=== PATIENT | female | born 1950 | race Caucasian/White ===

== ENCOUNTER 2016-10-29 08:09 | Day surgery (SDC) | payer OTHER ==
[2016-10-29] MEDS ORDERED: fentaNYL 100 MCG/2 ML INJ IVP ONE (08:11)
[2016-10-29] MEDS ORDERED: ASPIRIN EC 325 MG TAB PO ONE (08:11)
[2016-10-29] MEDS ORDERED: NS 1,000 ML IV ONE (08:11)
[2016-10-29] MEDS ORDERED: DIAZEPAM 5 MG TAB PO ONE (08:11)
[2016-10-29] MEDS ORDERED: diphenhydrAMINE 25 MG CAP PO ONE (08:11)
[2016-10-29] MEDS ORDERED: MIDAZOLAM 2 MG/2 ML VIAL IVP ONE (08:11)
[2016-10-29] MEDS ORDERED: FAMOTIDINE 20 MG TAB PO ONE (08:11)
[2016-10-29] MEDS ORDERED: BENZOCAINE UNIT DOSE SPRAY HURRICAINE MM ONE (08:11)
--- NOTE | 2016-10-29 08:26 | CPEKG ---
Heart Rate: 71 RR Interval: 845 P-R Interval: 192 QRSD Interval: 96 QT Interval: 440 QTC Interval: 479 P Lewis: -72 QRS Lewis: 80 T Wave Lewis: -75 EKG Severity - OTHERWISE NORMAL ECG - EKG Impression: SINUS OR ECTOPIC ATRIAL RHYTHM EKG Impression: NONSPECIFIC ST_T WAVE ABNORMAILITES Electronically Signed By: Rohit Galvan 29-Oct-2016 16:20:57
[2016-10-29 08:44] LABS: % IMMATURE GRANULYOCYTES 0.8 % (0.0-1.1); ABSOLUTE IMMATURE GRANULOCYTES 0.06 10^3/uL (0.00-0.10); ADD DIFF? NO; ADD MORPH? NO; ADD SCAN? NO; ATYPICAL LYMPHOCYTE FLAG 20 (0-99); FRAGMENT RBC FLAG 0 (0-99); HEMATOCRIT 42.8 % (38.0-47.0); HEMOGLOBIN 14.4 g/dL (12.6-16.3); LEFT SHIFT FLG 0 (0-99); LIPEMIA HEMOLYSIS FLAG 80 (0-99); MEAN CELL HEMOGLOBIN 30.9 pg (27.9-34.1); MEAN CELL HEMOGLOBIN CONCENTR. 33.6 g/dL (32.4-36.7); MEAN CELL VOLUME 91.8 fL (81.5-99.8); MEAN PLATELET VOLUME 13.3 fL (8.7-11.7); PLATELET CLUMPS FLAG 0 (0-99); PLATELET COUNT 247 10^3/uL (150-400); RED BLOOD CELL COUNT 4.66 10^6/uL (4.18-5.33); RED CELL DISTRIBUTION WIDTH 13.3 % (11.5-15.2)
[2016-10-29 08:54] LABS: INR 2.81 (0.83-1.16); PROTIME(PATIENT) 29.9 SEC (12.0-15.0)
[2016-10-29 09:05] LABS: ANION GAP 11 mEq/L (8-16); CALCIUM 9.9 mg/dL (8.5-10.4); CARBON DIOXIDE 21 mEq/l (22-31); CHLORIDE 105 mEq/L (97-110); CHOLESTEROL 192 mg/dL (140-220); CHOLESTEROL/HDL RATIO 3.76 RATIO (1.00-4.44); CREATININE 0.8 mg/dL (0.6-1.0); GLOMERULAR FILTRATION RATE > 60; GLUCOSE 98 mg/dL (70-100); HIGH DENSITY LIPOPROTEIN 51 mg/dL (40-85); LDL/HDL RATIO 1.67 RATIO (1.00-3.22); LOW DENSITY LIPOPROTEIN 85 mg/dL (80-100); MAGNESIUM 1.7 mg/dL (1.6-2.3); NON-HIGH DENSITY LIPOPROTEIN 141 mg/dL (90-129); POTASSIUM 4.1 mEq/L (3.5-5.2); SODIUM 137 mEq/L (134-144); TRIGLYCERIDE 284 mg/dL (35-135); VERY LOW DENSITY LIPOPROTEINS 56 mg/dL (8-25)
[2016-10-29] MEDS ORDERED: ADENOSINE 90 MG/30 ML VIAL IV ONE (09:37)
[2016-10-29] MEDS ORDERED: LIDOCAINE 1% 300 MG/30 ML SDV ONE (09:43)
[2016-10-29] MEDS ORDERED: fentaNYL 100 MCG/2 ML INJ ONE ×2 (09:43)
[2016-10-29] MEDS ORDERED: IOPAMIDOL (ISOVUE-370) 150 ML BTL IV ONE (09:43)
[2016-10-29] MEDS ORDERED: MIDAZOLAM 2 MG/2 ML VIAL ONE ×3 (09:43→10:24)
[2016-10-29] MEDS ORDERED: HEPARIN 10,000 UNIT/10 ML MDV ONE (09:49)
[2016-10-29] MEDS ORDERED: VERAPAMIL 5 MG/2 ML VIAL ONE (09:49)
--- NOTE | 2016-10-29 18:07 | CPIP ---
[f rep st] INVASIVE CARDIAC PROCEDURE DATE OF PROCEDURE: 10/29/2016 INDICATIONS: The patient is 66 years old. She has a history of complex mitral valve disease with m ultiple previous mitral valve surgeries, most recently placement of a mechanical [facility]. Neftali mitral tadeo ve, which was done in the 80s. By echocardiography, there has been a sequential increase in her pul monary artery pressures. She has [place] [employer] functional class 2 dyspnea on exertion. PROCEDURE: Right heart catheterization. Of note, this procedure was performed immediately followin g a complete transesophageal echocardiogram. TECHNIQUE: Following informed consent, the left brachial vein was cannulated. A 6-Upper Sorbian SafeSheat h was then placed. Using a balloon-tipped catheter, a full right heart catheterization was performe d. Following the procedure, the catheter and the sheath were removed from the body. FINDINGS: The pulmonary capillary wedge pressure was 21 with A waves of 19 and V waves of 30. The pulmonary capillary wedge saturation was 93.5%, confirming excellent wedge placement. The pulmonary artery pressure was 33 with a systolic of 50 and a diastolic of 22. Right ventricular pressure was 56/7/14 mmHg. Right atrial pressure was 14 mmHg. Aortic saturation was assumed to be 98% based on pulse oximetry. The pulmonary capillary wedge saturation was 93.5%, pulmonary artery saturation 78 .6%, right atrial saturation 79.3%, and superior vena cava saturation 77.9%. Calculated cardiac out put by Kervin was 4.48 L/minute with an index of 2.3 L/min/sq m. IMPRESSION: 1. Moderate pulmonary hypertension, likely on the basis of increased left-sided pressures. The tra nspulmonary gradient is 12 mmHg, indicating that there is not a substantial primary pulmonary arteri al component or primary pulmonary process. 2. History of complex mitral valve disease as detailed above. /[id number]/MODL
--- NOTE | 2016-11-01 11:47 | ECHO ---
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 Left ventricular systolic function is normal. Right Ventricle The right ventricle is normal in size and function. Atria The interatrial septum is intact with no evidence for an atrial septal defect. HAILEY appears to have been oversewn. The left atrium is mildly dilated. The right atrium is mildly dilated. 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 There is mild mitral regurgitation. There is a mechanical mitral valve. Tricuspid Valve Normal tricuspid valve. There is moderate tricuspid regurgitation. Aortic Valve The aortic valve is trileaflet. Mild Aortic Valve Calcification. There is no aortic insufficiency. Pulmonic Valve The pulmonic valve is normal in structure and function. Vessels The aortic root is normal size. The pulmonary is not well visualized. Pericardium There is no pericardial effusion. Conclusion A 2D transesophageal echocardiogram with color flow Doppler was performed. Normal LV size and function. Left ventricular systolic function is normal. There are no regional wall motion abnormalities. The left atrium is mildly dilated. HAILEY appears to have been oversewn. There is a mechanical mitral valve. There is mild mitral regurgitation. 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 Mild aortic sclerosis. Grossly normal tricuspid valve. There is moderate tricuspid regurgitation. Final Reading Physician: Lucian Rodriguez signed on 11/01/2016 11:46 AM Ordering Physician: Rohit Galvan Performed By: Rohit Galvan MD
== END 2016-10-29 13:45 | disposition home or self-care (01) ==
LOC: FCATH 08:09
PROVIDERS: ATTEND Internal Medicine Cardiovascular Disease
PROC: B246ZZ4 Ultrasonography of Right and Left Heart, Transesophageal (ICD-10-PCS; principal; 2016-10-29)
PROC: 4A023N6 Measurement of Cardiac Sampling and Pressure, Right Heart, Percutaneous Approach (ICD-10-PCS; principal; 2016-10-29)
DX: I27.2 Other secondary pulmonary hypertension (principal); I10 Essential (primary) hypertension; E78.5 Hyperlipidemia, unspecified; I48.91 Unspecified atrial fibrillation; Z79.01 Long term (current) use of anticoagulants; Z86.79 Personal history of other diseases of the circulatory system; Z95.4 Presence of other heart-valve replacement; Z86.73 Personal history of transient ischemic attack (TIA), and cerebral infarction without residual deficits
CPT/HCPCS: J0153; J1644; J2250; J3010; Q9967

== ENCOUNTER → 2017-02-12 | Day surgery (SDC) | payer OTHER ==
[~2017-02-12] MED LIST: ATROPINE SULFATE 1 MG/10 ML SYR IVP ONE; MIDAZOLAM 2 MG/2 ML VIAL IVP ONE; NS 500 ML IV ONE; PROPOFOL 200 MG/20 ML VIAL ONE; fentaNYL 100 MCG/2 ML INJ IVP ONE
--- NOTE | 2017-02-12 13:54 | CPEKG ---
Heart Rate: 150 RR Interval: 400 QRSD Interval: 94 QT Interval: 328 QTC Interval: 519 QRS [place]: 78 T Wave [place]: 269 EKG Severity - ABNORMAL ECG - EKG Impression: ATRIAL FIBRILLATION EKG Impression: REPOLARIZATION ABNORMALITY, PROB RATE RELATED EKG Impression: PROLONGED QT INTERVAL EKG Impression: ATRIAL FIBRILLATION IS NEW IN COMPARISON TO PRIOR Electronically Signed By: Yordan Camp 16-Feb-2017 09:06:43
[2017-02-12 14:19] LABS: INR 2.68 (0.83-1.16); PROTIME(PATIENT) 28.8 SEC (12.0-15.0)
[2017-02-12 14:20] LABS: APTT 40.1 SEC (23.0-38.0)
--- NOTE | 2017-02-12 15:03 | PDANEPAE ---
ANE History of Present Illness SVT ANE Past Medical History - Pulmonary History Hx Sleep Apnea: Yes ANE Review of Systems Review of Systems: - Exercise capacity METS (RN): 3 METS ANE Patient History - Allergies Allergies/Adverse Reactions: No Known Allergies Allergy (Verified 02/12/17 14:53) - Home Medications Home Medications: Aspirin [Aspirin 81mg (*)] 81 mg PO HS 10/29/16 [Last Taken 02/11/17] Estrogens, Conjugated [Premarin] 1.25 mg PO HS 10/29/16 [Last Taken 02/11/17] Gemfibrozil [Lopid 600 MG (*)] 600 mg PO BIDAC 10/29/16 [Last Taken 02/11/17] Herbals/Supplements -Info Only 1 ea PO DAILY 10/29/16 [Last Taken 02/11/17] Multivitamins [Multivitamin (*)] 1 each PO DAILY 10/29/16 [Last Taken 02/11/17] Naproxen 500 mg PO DAILY PRN 10/29/16 [Last Taken 02/11/17] Omeprazole [Prilosec 20 mg] 20 mg PO DAILY 10/29/16 [Last Taken 02/11/17] Penicillin V Potassium [Pen Vk 500mg (*)] 500 mg PO AD PRN 10/29/16 [Last Taken Unknown] Risedronate Sodium [Actonel] 150 mg PO Q30D 10/29/16 [Last Taken 02/11/17] Sotalol HCl [Sotalol] 120 mg PO BID 10/29/16 [Last Taken 02/12/17] Warfarin Sodium [Coumadin 5MG (*)] 5 mg PO HS 10/29/16 [Last Taken 02/11/17] Furosemide 40 mg 02/12/17 [Last Taken 02/11/17] Potassium 20 meq 02/12/17 [Last Taken 02/11/17] - Smoking Hx Smoking Status: Never smoked ANE Labs/Vital Signs - Labs Result Diagrams: 02/12/17 13:58 - Vital Signs Height: 162.56 cm Weight: 81.647 kg ANE Physical Exam - Airway Neck exam: FROM Mallampati Score: Class 1 Mouth exam: normal dental/mouth exam - Pulmonary Pulmonary: no respiratory distress - Cardiovascular Cardiovascular: regular rate and rhythym - ASA Status ASA Status: III ANE Anesthesia Plan Total IV Anesthesia: Yes
--- NOTE | 2017-02-12 15:12 | PDHPUP ---
History & Physical Update H&P update statement: This history and physical update is based on an assessment of the patient which was completed after admission or registration (within 24 hours), but prior to the surgery/procedure. H&P update: H&P reviewed & patient examined, no change in patient's condition since H&P completed
[2017-02-12 15:27] LABS: ANION GAP 16 mEq/L (8-16); CALCIUM 10.3 mg/dL (8.5-10.4); CARBON DIOXIDE 21 mEq/l (22-31); CHLORIDE 101 mEq/L (97-110); CREATININE 1.1 mg/dL (0.6-1.0); GLOMERULAR FILTRATION RATE 50; GLUCOSE 127 mg/dL (70-100); MAGNESIUM 1.6 mg/dL (1.6-2.3); POTASSIUM 3.9 mEq/L (3.5-5.2); SODIUM 138 mEq/L (134-144)
--- NOTE | 2017-02-12 15:42 | PDTEE1 ---
FANY Cardioversion Procedure Procedure: electrical cardioversion Indications: atrial fibrillation Consent: signed and in chart Anticoagulation: warfarin Procedural Details: Pads were placed in anterior-posterior position. FANY probe was advanced and standard images obtained. There is no evidence of left atrial or left atrial appendage thrombus. Synchronized cardioversion attempt #1: 200J Results: normal sinus rhythm (FANY not performed.) Conclusions: successful cardioversion
--- NOTE | 2017-02-12 15:46 | CPEKG ---
Heart Rate: 65 RR Interval: 923 P-R Interval: 149 QRSD Interval: 102 QT Interval: 452 QTC Interval: 470 P [place]: 0 QRS [place]: 70 T Wave Cache: -77 EKG Severity - ABNORMAL ECG - EKG Impression: SINUS RHYTHM EKG Impression: REPOL ABNRM SUGGESTS ISCHEMIA, ANT-LAT LEADS EKG Impression: SINUS RHYTHM HAS REPLACED ATRIAL FIBRILLATION ON PRIOR ECG Electronically Signed By: Yordan Camp 16-Feb-2017 09:07:04
[2017-02-12 16:02] VITALS: BP 106/69; RESP 19; O2SAT 97
== END | disposition home or self-care (01) ==
LOC: FCATH 13:33
PROVIDERS: ATTEND Internal Medicine Cardiovascular Disease
PROC: 5A2204Z Restoration of Cardiac Rhythm, Single (ICD-10-PCS; principal; 2017-02-12)
PROC: B245ZZ4 Ultrasonography of Left Heart, Transesophageal (ICD-10-PCS; principal; 2017-02-12)
DX: I48.0 Paroxysmal atrial fibrillation (principal); I10 Essential (primary) hypertension; Z86.73 Personal history of transient ischemic attack (TIA), and cerebral infarction without residual deficits; Z95.2 Presence of prosthetic heart valve; E78.5 Hyperlipidemia, unspecified; E66.9 Obesity, unspecified; Z68.30 Body mass index [BMI] 30.0-30.9, adult
CPT/HCPCS: J2704

== ENCOUNTER 2017-05-13 06:32 | Day surgery (SDC) | payer OTHER ==
[2017-05-13] MEDS ORDERED: ATROPINE SULFATE 1 MG/10 ML SYR IVP ONE (06:34)
[2017-05-13] MEDS ORDERED: NS 500 ML IV ONE (06:34)
--- NOTE | 2017-05-13 06:49 | CPEKG ---
Heart Rate: 68 RR Interval: 882 P-R Interval: 200 QRSD Interval: 96 QT Interval: 480 QTC Interval: 511 P [place]: -48 QRS [place]: 67 T Wave [place]: -75 EKG Severity - ABNORMAL ECG - EKG Impression: SINUS OR ECTOPIC ATRIAL RHYTHM EKG Impression: NONSPECIFIC REPOL ABNORMALITY, DIFFUSE LEADS EKG Impression: PROLONGED QT INTERVAL EKG Impression: SIMILAR ST/T WAVE CHANGES WERE NOTED ON PRIOR ECG Electronically Signed By: Yordan Camp 13-May-2017 14:38:58
== END 2017-05-13 07:30 | disposition home or self-care (01) ==
LOC: FCATH 06:32
PROVIDERS: ATTEND Internal Medicine Cardiovascular Disease
DX: I48.92 Unspecified atrial flutter (principal); Z53.09 Procedure and treatment not carried out because of other contraindication

== ENCOUNTER 2017-05-22 06:56 | Inpatient (IN) | payer OTHER ==
[2017-05-22] MEDS ORDERED: NS 1,000 ML IV ONE (07:01)
--- NOTE | 2017-05-22 07:20 | CPEKG ---
Heart Rate: 72 RR Interval: 833 P-R Interval: 158 QRSD Interval: 98 QT Interval: 444 QTC Interval: 486 P Iron: 0 QRS Iron: 63 T Wave Iron: -58 EKG Severity - ABNORMAL ECG - EKG Impression: SINUS RHYTHM EKG Impression: ABNORMAL T, CONSIDER ISCHEMIA, DIFFUSE LEADS EKG Impression: BORDERLINE PROLONGED QT INTERVAL Electronically Signed By: Yordan Camp 25-May-2017 10:33:34
[2017-05-22 07:32] LABS: PLATELET COUNT 275 10^3/uL (150-400)
[2017-05-22 07:41] LABS: INR 2.75 (0.83-1.16)
[2017-05-22] MEDS ORDERED: HEPARIN 10,000 UNIT/10 ML MDV (1,000 UNIT/ML) ONE (07:50)
[2017-05-22] MEDS ORDERED: BUPIVACAINE 0.5% 30 ML SDV ONE (07:50)
[2017-05-22] MEDS ORDERED: LIDOCAINE 1% 300 MG/30 ML SDV ONE (07:50)
[2017-05-22] MEDS ORDERED: ISOPROTERENOL HCL/D5W 0.2 MG/50 ML BAG IV ONE (07:51)
[2017-05-22] MEDS ORDERED: MIDAZOLAM 2 MG/2 ML VIAL IVP ONE (08:23)
--- NOTE | 2017-05-22 08:24 | PDANEPAE ---
ANE History of Present Illness here for AF ablation ANE Past Medical History - Cardiovascular History Hx Arrhythmias: Yes Hx Chest Pain: No Hx Coronary Artery / Peripheral Vascular Disease: No Hx CHF / Valvular Disease: Yes Hx Palpitations: No - Pulmonary History Hx COPD: No Hx Asthma/Reactive Airway Disease: No Hx Recent Upper Respiratory Infection: No Hx Oxygen in Use at Home: No Hx Sleep Apnea: Yes - Neurologic History Hx Cerebrovascular Accident: Yes Hx Seizures: No Hx Dementia: No - Endocrine History Hx Diabetes: No Hypothyroid: No Hyperthyroid: No Obesity: no - Renal History Hx Renal Disorders: No - Liver History Hx Hepatic Disorders: No - Neurological & Psychiatric Hx Hx Neurological and Psychiatric Disorders: No ANE Review of Systems Review of systems is: negative Review of Systems: - Exercise capacity Exercise capacity: <4 METS ANE Patient History - Allergies Allergies/Adverse Reactions: No Known Allergies Allergy (Verified 02/12/17 14:53) - Home Medications Home medications: home medication list seen and reviewed Home Medications: Aspirin [Aspirin 81mg (*)] 81 mg PO HS 10/29/16 [Last Taken 02/11/17] Estrogens, Conjugated [Premarin] 1.25 mg PO HS 10/29/16 [Last Taken 02/11/17] Gemfibrozil [Lopid 600 MG (*)] 600 mg PO BIDAC 10/29/16 [Last Taken 02/11/17] Multivitamins [Multivitamin (*)] 1 tab PO DAILY 10/29/16 [Last Taken 02/11/17] Naproxen 500 mg PO DAILY PRN 10/29/16 [Last Taken 02/11/17] Omeprazole [Prilosec 20 mg] 20 mg PO DAILY 10/29/16 [Last Taken 02/11/17] Penicillin V Potassium [Pen Vk 500mg (*)] 500 mg PO AD PRN 10/29/16 [Last Taken Unknown] Risedronate Sodium [Actonel] 150 mg PO Q30D 10/29/16 [Last Taken 05/05/17] Sotalol HCl [Sotalol] 120 mg PO BID 10/29/16 [Last Taken 02/12/17] Warfarin Sodium [Coumadin 5MG (*)] 5 mg PO HS 10/29/16 [Last Taken 02/11/17] Furosemide [Lasix 40 MG (*)] 60 mg PO DAILY 02/12/17 [Last Taken 02/11/17] Potassium Cl [Klor-Con 20 meq (*)] 20 meq PO DAILY 02/12/17 [Last Taken 02/11/17 ] Calcium Citrate/Glut AC HCl [Calcium Citrate Tablet] 1 tab PO BID 05/17/17 [ Last Taken Unknown] Gerton-3 Fatty Acids [Fish Oil 1000 mg (*)] 1,000 mg PO BID 05/17/17 [Last Taken Unknown] - NPO status NPO Status: no food or drink >8 hours - Smoking Hx Smoking Status: Never smoked ANE Labs/Vital Signs - Labs Result Diagrams: 05/22/17 07:20 05/22/17 07:20 - Vital Signs Vital Signs: reviewed preoperatively; see RN documention for details ANE Physical Exam - Airway Neck exam: FROM Mallampati Score: Class 1 - Pulmonary Pulmonary: no respiratory distress - Cardiovascular Cardiovascular: regular rate and rhythym - ASA Status ASA Status: II, III ANE Anesthesia Plan Anesthesia Plan: general endotracheal anesthesia
[2017-05-22] MEDS ORDERED: PROPOFOL/EMULSION 500 MG/50 ML BOTTLE IV ONE ×2 (08:59→09:18)
[2017-05-22] MEDS ORDERED: fentaNYL 100 MCG/2 ML INJ ONE (09:09)
[2017-05-22] MEDS ORDERED: OXYCODONE/APAP 5/325 TAB PO PRN (10:59)
[2017-05-22] MEDS ORDERED: ONDANSETRON 4 MG/2 ML VIAL IVP PRN (10:59)
[2017-05-22] MEDS ORDERED: ACETAMINOPHEN 325 MG TAB PO PRN (10:59)
[2017-05-22] MEDS ORDERED: SUGAMMADEX SODIUM 200 MG/2 ML VIAL IVP ONE (11:01)
[2017-05-22] MEDS ORDERED: NON-FORMULARY NEW DRUG (Naproxen [Naproxen] 500 MG) PO PRN (11:01)
[2017-05-22] MEDS ORDERED: PENICILLIN VK 500 MG TAB PO PRN (11:01)
[2017-05-22] MEDS ORDERED: RISEDRONATE SODIUM 150 MG PO SCH (11:15)
--- NOTE | 2017-05-22 11:22 | CPEKG ---
Heart Rate: 72 RR Interval: 833 P-R Interval: 244 QRSD Interval: 104 QT Interval: 456 QTC Interval: 500 P [place]: 26 QRS [place]: 71 T Wave [place]: -75 EKG Severity - ABNORMAL ECG - EKG Impression: SINUS RHYTHM EKG Impression: FIRST DEGREE AV BLOCK EKG Impression: BORDERLINE PROLONGED QT INTERVAL EKG Impression: NON SPECIFIC ST/T CHANGES NOTED Electronically Signed By: Yordan Camp 25-May-2017 10:33:57
--- NOTE | 2017-05-22 11:32 | POSTANESTH ---
Post Anesthetic Evaluation Cardiovascular Status: Normal, Stable Respiratory Status: Normal, Stable Level of Consciousness/Mental Status: Can Participate in Eval Pain Control: Adequate, Prn Tx Ordered Nausea/Vomiting Control: Adequate, Prn Tx Ordered Complications Possibly Related to Anesthesia: None Noted
[2017-05-22] MEDS ORDERED: NAPROXEN SODIUM 220 MG TAB PO PRN (11:33)
[2017-05-22] MEDS: GEMFIBROZIL 600 MG TAB PO SCH (18:41)
[2017-05-22] MEDS ORDERED: METOPROLOL TARTRATE 5 MG/5 ML INJ IVP ONE (20:15)
[2017-05-22] MEDS: WARFARIN SODIUM 5 MG TAB PO SCH (20:31)
[2017-05-22] MEDS: OMEGA-3 FATTY ACIDS 1,000 MG CAP PO SCH (20:31)
[2017-05-22] MEDS: SOTALOL HCL 80 MG TAB PO SCH (20:31)
[2017-05-22] MEDS: ASPIRIN 81 MG CHEWABLE TAB PO SCH (20:31)
[2017-05-22] MEDS ORDERED: [UNRECOGNIZED DRUG - OTHER] PO SCH (21:00)
[2017-05-22] MEDS ORDERED: ESTROGENS CONJUGATED 1.25 MG PO SCH (21:00)
[2017-05-22] MEDS ORDERED: CALCIUM CITRATE PO SCH (21:00)
[2017-05-22] MEDS ORDERED: NON-FORMULARY NEW DRUG (Sotalol Hcl [Sotalol] 120 MG) PO SCH (21:00)
[2017-05-22] MEDS ORDERED: DILTIAZEM HCL/D5W 125 ML IV SCH (23:00)
[2017-05-23 02:31] LABS: PLATELET COUNT 259 10^3/uL (150-400)
[2017-05-23 02:39] LABS: INR 2.87 (0.83-1.16)
[2017-05-23 02:48] LABS: CREATINE KINASE 35 IU/L (0-156)
[2017-05-23] MEDS: SOTALOL HCL 80 MG TAB PO SCH ×2 (08:02→21:06)
[2017-05-23] MEDS: PANTOPRAZOLE SODIUM 40 MG TAB PO SCH (08:06)
[2017-05-23] MEDS: OMEGA-3 FATTY ACIDS 1,000 MG CAP PO SCH ×2 (08:06→21:07)
[2017-05-23] MEDS: CALCIUM CARBONATE 500 MG TAB PO SCH ×2 (08:06→21:07)
[2017-05-23] MEDS: MULTIVITAMINS 1 EACH TAB PO SCH (08:06)
[2017-05-23] MEDS: GEMFIBROZIL 600 MG TAB PO SCH ×2 (08:06→16:36)
[2017-05-23] MEDS ORDERED: ATROPINE SULFATE 1 MG/10 ML SYR IVP ONE (08:22)
[2017-05-23] MEDS ORDERED: NS 500 ML IV ONE (08:22)
[2017-05-23] MEDS ORDERED: MIDAZOLAM 2 MG/2 ML VIAL IVP ONE (08:22)
[2017-05-23] MEDS ORDERED: fentaNYL 100 MCG/2 ML INJ IVP ONE (08:22)
[2017-05-23] MEDS ORDERED: ATROPINE SULFATE 1 MG/10 ML SYR ONE (08:24)
--- NOTE | 2017-05-23 08:29 | ECHO ---
[email or web address] [address] [address] Main: [phone] Fax: Transthoracic Echocardiogram Name: BOB RICHARDSON MR#: [id number] Study Date: 05/23/2017 Study Time: 04:57 AM Date of : 1950 Age: 67 year(s) Height: 165.1 cm (65 in.) Weight: 78.02 kg (172 lb.) BSA: 1.86 m2 Gender: Female Examination: Echo Indication: stat r/o pericardial effusion Image Quality: Technically Difficult Contrast: Requested by: Valdo Ott BP: 91 mmHg/57 mmHg Heart Rate: Rhythm: Atrial fibrillation Indication: stat r/o pericardial effusion 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 Low normal left ventricular systolic function. EF is 50 %. There is paradoxic septal motion suggestive of bundle branch block, paced cardiac rhythm, or prior cardiac surgery. A mechanical mitral valve prosthesis is in place.. Prosthetic mitral valve gradients are within normal limits. Cannot assess the presence or severity of regurgitation due to shielding from the prosthesis. Moderate to severe tricuspid valve regurgitation. Normal size aortic root measuring 2.7 cm. Measurements: Chambers Valvular Assessment AV/MV Valvular Assessment TV/PV Normal Normal Normal Name Value Range Name Value Range Name Value Range Ao Brittany (MM): 2.7 cm (2.2 cm-3.7 AV Vmax: 1.00 m/s (1 m/s-1.7 TR Vmax: 2.58 mm/s ( - ) cm) m/s) TR PGmax: 27 mmHg ( - ) IVSd (2D): 1.0 cm (0.6 cm-1.1 AV maxP mmHg ( - ) syst. PAP: 42 mmHg ( - ) cm) LVOT Vmax: 0.54 m/s (0.7 m/s-1.1 PV Vmax: 0.71 m/s (0.6 m/s-0.9 LVDd (2D): 3.8 cm (3.9 cm-5.3 m/s) m/s) cm) MV meanP mmHg ( - ) PV PGmax: 2 mmHg ( - ) LVDs (2D): 2.8 cm (2.1 cm-4 MV PHT: 0.074 s ( - ) cm) MVA (PHT): 3.0 s ( - ) LVPWd (2D): 1.0 cm ( - ) LVEF (BP): 50 % (>=55 %) RVDd(2D): 3.9 cm (1.9 cm-3.8 cmmm) Continued Measurements: Valvular Assessment AV/MV Valvular Assessment TV/PV Patient: BOB RICHARDSON Study Date: 05/23/2017 Page 1 of 2 04:57 AM Name Value Name Value MV VTI: 30.30 cm CVP (est.): 15 mmHg Additional Vessels Name Value Ao Ascendin.7 cm Findings: Left Ventricle: Normal size left ventricle. Mild concentric LV hypertrophy. Low normal left ventricular systolic function. EF is 50 %. There is paradoxic septal motion suggestive of bundle branch block, paced cardiac rhythm, or prior cardiac surgery. Unable to assess diastolic dysfunction. Right Ventricle: Mildly dilated right ventricle. Normal RV function. Left Atrium: The left atrium is mildly dilated. Right Atrium: The right atrium is mildly to moderately dilated. Mitral Valve: A mechanical mitral valve prosthesis is in place.. Prosthetic mitral valve gradients are within normal limits. Cannot assess the presence or severity of regurgitation due to shielding from the prosthesis. Aortic Valve: The aortic valve is tri-leaflet and functions normally. Tricuspid Valve: The tricuspid valve appears normal. Moderate to severe tricuspid valve regurgitation. Right ventricular systolic pressure measures 42mmHg. The pulmonary artery pressure is mild to moderately increased. Pulmonic Valve: Pulmonary valve not well visualized. Aorta: Normal size aortic root measuring 2.7 cm. Normal size ascending aorta measuring 2.7 cm. IVC: The IVC is dilated. No foreign body in inferior vena cava. There is less than 50% respiratory excursion. Pericardium: Trivial anterior pericardial effusion. (No Signature Object) Patient: BOB RICHARDSON Study Date: 05/23/2017 Page 2 of 2 04:57 AM [id number]
--- NOTE | 2017-05-23 08:44 | CPEKG ---
Heart Rate: 147 RR Interval: 408 QRSD Interval: 92 QT Interval: 332 QTC Interval: 520 QRS [place]: 91 T Wave [place]: -68 EKG Severity - ABNORMAL ECG - EKG Impression: ATRIAL FIBRILLATION EKG Impression: RIGHT AXIS DEVIATION EKG Impression: REPOLARIZATION ABNORMALITY, PROB RATE RELATED EKG Impression: PROLONGED QT INTERVAL EKG Impression: ATRIAL FIBRILLATION IS NEW IN COMPARISON TO PRIOR ECG Electronically Signed By: Yordan Camp 25-May-2017 10:34:19
[2017-05-23] MEDS ORDERED: NON-FORMULARY NEW DRUG (Omeprazole [Prilosec 20 Mg] 20 MG) PO SCH (09:00)
[2017-05-23] MEDS: FUROSEMIDE 40 MG TAB PO SCH (09:30)
--- NOTE | 2017-05-23 09:30 | PDANEPAE ---
ANE History of Present Illness CARDIOVERSION ANE Past Medical History - Cardiovascular History Hx Arrhythmias: Yes Hx Chest Pain: No Hx Coronary Artery / Peripheral Vascular Disease: No Hx CHF / Valvular Disease: Yes Hx Palpitations: No - Pulmonary History Hx COPD: No Hx Asthma/Reactive Airway Disease: No Hx Recent Upper Respiratory Infection: No Hx Oxygen in Use at Home: No Hx Sleep Apnea: Yes - Neurologic History Hx Cerebrovascular Accident: Yes Hx Seizures: No Hx Dementia: No - Endocrine History Hx Diabetes: No Hypothyroid: No Hyperthyroid: No Obesity: no - Renal History Hx Renal Disorders: No - Liver History Hx Hepatic Disorders: No - Neurological & Psychiatric Hx Hx Neurological and Psychiatric Disorders: No - Chronic Pain History Chronic Pain: No ANE Review of Systems Review of systems is: negative Review of Systems: ANE Patient History - Allergies Allergies/Adverse Reactions: No Known Allergies Allergy (Verified 02/12/17 14:53) - Home Medications Home medications: home medication list seen and reviewed Home Medications: Aspirin [Aspirin 81mg (*)] 81 mg PO HS 10/29/16 [Last Taken 02/11/17] Estrogens, Conjugated [Premarin] 1.25 mg PO HS 10/29/16 [Last Taken 02/11/17] Gemfibrozil [Lopid 600 MG (*)] 600 mg PO BIDAC 10/29/16 [Last Taken 02/11/17] Multivitamins [Multivitamin (*)] 1 tab PO DAILY 10/29/16 [Last Taken 02/11/17] Naproxen 500 mg PO DAILY PRN 10/29/16 [Last Taken 02/11/17] Omeprazole [Prilosec 20 mg] 20 mg PO DAILY 10/29/16 [Last Taken 02/11/17] Penicillin V Potassium [Pen Vk 500mg (*)] 500 mg PO AD PRN 10/29/16 [Last Taken Unknown] Risedronate Sodium [Actonel] 150 mg PO Q30D 10/29/16 [Last Taken 05/05/17] Sotalol HCl [Sotalol] 120 mg PO BID 10/29/16 [Last Taken 02/12/17] Warfarin Sodium [Coumadin 5MG (*)] 5 mg PO HS 10/29/16 [Last Taken 02/11/17] Furosemide [Lasix 40 MG (*)] 60 mg PO DAILY 02/12/17 [Last Taken 02/11/17] Potassium Cl [Klor-Con 20 meq (*)] 20 meq PO DAILY 02/12/17 [Last Taken 02/11/17 ] Calcium Citrate/Glut AC HCl [Calcium Citrate Tablet] 1 tab PO BID 05/17/17 [ Last Taken Unknown] Kila-3 Fatty Acids [Fish Oil 1000 mg (*)] 1,000 mg PO BID 05/17/17 [Last Taken Unknown] - NPO status NPO Status: no food or drink >8 hours - Smoking Hx Smoking Status: Never smoked ANE Labs/Vital Signs - Labs Result Diagrams: 05/23/17 02:10 05/23/17 02:10 - Vital Signs Blood Pressure: 105/74 Heart Rate: 158 Respiratory Rate: 16 O2 Sat (%): 94 Height: 165 cm Weight: 78 kg ANE Physical Exam - Airway Neck exam: FROM Mallampati Score: Class 2 Mouth exam: normal dental/mouth exam - Pulmonary Pulmonary: no respiratory distress - Cardiovascular Cardiovascular: regular rate and rhythym - ASA Status ASA Status: III ANE Anesthesia Plan Total IV Anesthesia: Yes
[2017-05-23] MEDS ORDERED: PROPOFOL 200 MG/20 ML VIAL ONE (09:31)
--- NOTE | 2017-05-23 09:31 | POSTANESTH ---
Post Anesthetic Evaluation Cardiovascular Status: Normal, Stable Respiratory Status: Normal, Stable, Similar to Pre-op Cond. Level of Consciousness/Mental Status: Can Participate in Eval, Mildly Sleepy, Arousable Pain Control: Adequate, Prn Tx Ordered Nausea/Vomiting Control: Adequate, Prn Tx Ordered Complications Possibly Related to Anesthesia: None Noted
[2017-05-23] MEDS ORDERED: ONDANSETRON 4 MG/2 ML VIAL IVP PRN (09:51)
[2017-05-23] MEDS ORDERED: NALOXONE HCL 0.4 MG/ML INJ IVP PRN (09:51)
[2017-05-23] MEDS ORDERED: fentaNYL 100 MCG/2 ML INJ IVP PRN (09:51)
[2017-05-23] MEDS ORDERED: DEXAMETHASONE 4 MG/ML VIAL IVP PRN (09:51)
--- NOTE | 2017-05-23 10:34 | ASMTCASEMG ---
Living Arrangements What is your living Answers: With Spouse arrangement? Who do you live with? Type Of Residence What kind of residence do Answers: House you live in? Discharge Plan Comments Coordination Status Comments Notes: Pt is a 67 y/o female admitted for atrial flutter. Pt will most likely d/c independent when medically stable. No therapies ordered at this time. CM available for changes. Plan: Independent Date Signed: 05/23/2017 10:33 AM Electronically Signed By:ROSALINE Lombardo
[2017-05-23] MEDS: ESTROGENS,CONJUGATED 0.625 MG TAB PO SCH (12:15)
[2017-05-23] MEDS: POTASSIUM CL 20 MEQ TAB PO SCH (12:15)
--- NOTE | 2017-05-23 15:34 | CPEKG ---
Heart Rate: 67 RR Interval: 896 P-R Interval: 220 QRSD Interval: 98 QT Interval: 436 QTC Interval: 461 P [place]: 120 QRS [place]: 68 T Wave [place]: -71 EKG Severity - ABNORMAL ECG - EKG Impression: SINUS RHYTHM EKG Impression: FIRST DEGREE AV BLOCK EKG Impression: FIRST DEGREE AVB IS NEW IN COMPARISON TO PRIOR Electronically Signed By: Yordan Camp 25-May-2017 10:34:50
--- NOTE | 2017-05-23 15:55 | PDCARPN ---
Cardiology Progress Note Chief Complaint: Patient reports episodes of spontaneous nausea. Assessment/Plan: Assessment: 67-year-old female with significant past history that includes rheumatic heart disease with past history of mitral stenosis, status post mechanical valve placement, history of paroxysmal atrial fibrillation. Previous history CVA without residual affect , hypertension. She has been on sotalol since 2011, with well controlled atrial fibrillation. More recently, she has been reporting episodes of accelerated heart rate that usually resolved within 48 hours. She has in the recent past presented to our office with a narrow complex tachycardia at 154 BPM , was scheduled for cardioversion, but self converted. She had been evaluated by Dr. Ott, who determined this to be atrial flutter. On 05/22/2017, she was taken to the electrophysiology suite where Dr. Ott performed a flutter ablation. Today, patient was noted to have runs of SVT/atrial fibrillation overnight, she was taken to [facility] today , cardioversion was performed which successfully converted her back into sinus rhythm with rare PACs. Echocardiogram done this morning post EP procedure showed low-normal LV systolic function with EF of 50% , mechanical mitral valve prosthetic in place, with normal gradients. Moderate to severe TR trivial pericardial effusion. Unfortunately, since her cardioversion, she has been reporting some episodes stomach and nausea. And has been feeling mildly fatigue. She denies of any chest pressure or pain. Laboratory studies drawn today showed her INR is therapeutic at 2.87, she did have a bump in WBCs of 17.33, hemoglobin hematocrit within normal limits. Noted to have a mild troponin bump of 0.480. Plan: 1. Atrial fibrillation: Patient has been resumed on home dose of sotalol. Status post cardioversion this afternoon. INR within normal limits. 2. Atrial flutter: Status post ablation. None noted since then. Continue sotalol. on warfarin therapy. INRs within normal limits. 3. Mildly bumped troponin: Expected status post ablation. 4. Valvular heart disease: Known history mechanical valve mitral, echocardiogram showing functioning within normal limits. No signs of heart failure. Continue on home Lasix and potassium dosage. 5. Hypertension: blood pressure within normal limits. 6. Leukocytosis: Elevated white blood cell count post EP procedure, probably due to stress. No signs of infection. Will monitor. 7. Fatigue and nausea: Mildly improved with Zofran. Will continue monitoring the patient overnight 8. DVT prophylaxis: Patient on warfarin INRs therapeutic. 9. Code status: Patient is a full code. Due to patient's multiple cor morbidities, ongoing nausea, will plan for patient to stay 1 more night in hospital. 05/23/17 15:53 Subjective: Patient denies of any chest pressure or pain, reports no shortness of breath, denies of any orthopnea, PND, edema, lightheadedness, near-syncope, or syncopal events. Reviewed/Discussed With: other (Dr Ott) Objective: Vital Signs (8 Hrs) Temp Pulse Resp BP Pulse Ox 05/23/17 15:30 36.8 C 66 18 116/71 96 05/23/17 11:18 36.6 C 63 16 122/73 H 94 05/23/17 10:19 36.4 C 67 21 H 112/69 97 05/23/17 09:30 158 H 16 105/74 94 Intake/Output (24 Hrs) 05/22/17 05/23/17 05/24/17 05:59 05:59 05:59 Intake Total 2600 Output Total 950 Balance 1650 Intake: Oral (ml) 400 IV Intake (ml) 2200 Output: Urine (ml) 950 Catheter 950 Other: Weight 78 kg 78 kg Number of Emesis 3 Occurrences Result Diagrams: 05/23/17 02:10 05/23/17 02:10 Cardiac Labs: Cardiac Lab Results (72 Hrs) 05/23/17 02:10 CK-MB (CK-2) Fraction 2.50 Troponin I 0.480 H - Physical Exam Constitutional: healthy appearing, no apparent distress Ears, Nose, Mouth, Throat: moist mucous membranes Cardiovascular: regular rate and rhythm, no rubs, systolic murmur (Mechanical click noted), pulses symmetric bilat, No jugular vein distention, No carotid bruit Peripheral Pulses: 1+: dorsalis-pedis (R), dorsalis-pedis (L), 2+: carotid (R), carotid (L) Respiratory: clear to auscultate bilat, no crackles, no wheezes Gastrointestinal: normoactive bowel sounds Skin: no rashes, warm, no edema, other (Right groin site, catheter insertion site, with no redness, swelling, drainage, ecchymosis, hematoma, or bleeding. No auscultated bruit over site) Neurologic: AAOx3 Psychiatric: cooperative, interactive, following commands ICD10 Worksheet Patient Problems: Problems Problem Status Onset Atrial flutter Acute Valvular heart disease Acute - ICD10 Problem Qualifiers (1) Atrial flutter (2) Valvular heart disease
--- NOTE | 2017-05-23 19:02 | EPPROC ---
Electrophysiology Procedure Note: INDICATION: Recurrent atrial flutter in a patient with rheumatic heart disease, MVR and significant LA and RA enlargement PROCEDURES PERFORMED: 93358-21 EP evaluation with RA/RV/LA pace/record, with arrhythmia induction 74544-20 EP evaluation with RA/RV pace record, insert/reposition catheter, with arrhythmia induction 52029 SVT ablation 09322 3D mapping Fluoroscopy Catheters & Anesthesia: The patient arrived in the Electrophysiology Laboratory in the fasting state. The right clavicular region, right groin, and left groin area were prepped and draped in the usual sterile manner. Anesthesiologist administered general anesthesia. Appropriate non-invasive blood pressure, pulse oximetry and end- tidal CO2 monitoring was established. All catheters were placed percutaneously using the modified Seldinger technique , and advanced into position under fluoroscopic guidance. One #6 Azerbaijani deflectable decapolar catheter was advanced into the CS and another one into the ALRA position via the RFV. Heparin was administered Programmed stimulation was performed from the right atrium, coronary sinus ( left atrium) and right ventricle. On arrival to the Electrophysiology Laboratory the patient was in SR. Atrial flutter, CL 300_ ms was easily induced. This did not appear to be a typical flutter and hence mapping was performed. It was deemed to be a reentrant circuit around the septal incision site. Fragmented signals were noted. On a couple of occasions, tachycardia terminated when catheter was placed in the upper septal region. Ablation was performed with a #8 [place]ij[place] deflectable quadrapolar electrode catheter (2mm-5mm-2mm spacing) with 3.5 mm irrigated tip electrode and location sensor . Tachycardia terminated and pt went into AF. CV was performed. Further, isthmus was evaluated and CT isthmus conduction was noted. Radiofrequency applications were applied between the tricuspid annulus at 0630 o clock as seen in the LATESHA view and the inferior vena cava. This achieved conduction block across the isthmus Following ablation of the atrial flutter, programmed atrial stimulation was performed in the baseline state was performed and pt went into AF consistently without any AT or atrial flutter. CV had to be performed twice. Post ablation, bidirectional block was also confirmed by differential pacing. The catheters were removed. The patient was transferred to the cardiovascular holding area in stable condition. Vascular access sheaths were removed in the holding area. There were no apparent complications. Results: RA flutter in the septum at the site of previous septal incision Isthmus conduction with conduction time of 120ms Successful ablation of the reentrant AT from the atrial septum Successful CT isthmus isolation with isthmus conduction time of 190ms Bidirectional block post ablation No induction of Aflutter post ablation Easy induction of AF post ablation with need for CV CONCLUSIONS: RA tachycardia at the site of septal incision during previous MVR surgery Conduction across isthmus Successful ablation of AT * Successful catheter mediated ablation of cavotricuspid isthmus achieving bi- directional conduction block across cavotricuspid isthmus. * Easily inducible AF post ablation of the above tachycardias * No apparent complications. Patient Problems: Problems Problem Status Onset Atrial flutter Acute Valvular heart disease Acute
--- NOTE | 2017-05-23 19:03 | EPPROC ---
Electrophysiology Procedure Note: Procedure: DCCV Indication: Symptomatic AF Procedure: Pt sedated by members of anesthesia staff. Once sedated, 200J of synchronized DCCV performed. pt converted to SR Conclusion: Successful CV Patient Problems: Problems Problem Status Onset Atrial flutter Acute Valvular heart disease Acute
[2017-05-23] MEDS: WARFARIN SODIUM 5 MG TAB PO SCH (21:06)
[2017-05-23] MEDS: ASPIRIN 81 MG CHEWABLE TAB PO SCH (21:08)
[2017-05-24 04:38] LABS: INR 2.92 (0.83-1.16); PROTIME(PATIENT) 30.4 SEC (12.0-15.0)
[2017-05-24 04:53] LABS: PLATELET COUNT 228 10^3/uL (150-400)
[2017-05-24 07:01] VITALS: BP 141/86; PULSE 66; RESP 17; TEMP 97.8; O2SAT 96
[2017-05-24] MEDS: GEMFIBROZIL 600 MG TAB PO SCH (08:24)
[2017-05-24] MEDS: ESTROGENS,CONJUGATED 0.625 MG TAB PO SCH (08:26)
[2017-05-24] MEDS: FUROSEMIDE 40 MG TAB PO SCH (08:26)
[2017-05-24] MEDS: SOTALOL HCL 80 MG TAB PO SCH (08:27)
[2017-05-24] MEDS: POTASSIUM CL 20 MEQ TAB PO SCH (08:28)
[2017-05-24] MEDS: OMEGA-3 FATTY ACIDS 1,000 MG CAP PO SCH (08:28)
[2017-05-24] MEDS: CALCIUM CARBONATE 500 MG TAB PO SCH (08:29)
[2017-05-24] MEDS: MULTIVITAMINS 1 EACH TAB PO SCH (08:29)
[2017-05-24] MEDS: PANTOPRAZOLE SODIUM 40 MG TAB PO SCH (08:30)
--- NOTE | 2017-05-24 09:55 | GDS ---
[f rep st] DISCHARGE SUMMARY ADMIT DIAGNOSES: 1. Atrial flutter. 2. Planned electrophysiology study with possible atrial flutter ablation with Dr. Valdo Ott. 3. Mechanical aortic valve. 4. History of supraventricular tachycardia. a. Status post successful atrial flutter ablation. b. Mechanical aortic valve. c. History of supraventricular tachycardia. Kamilah is a 67-year-old female with history of rheumatic heart disease and history of mechanical aortic valve. She has known paroxysmal atrial fibrillation as well as atrial flutter. She was admit ronaldo to the hospital for electrophysiology study and possible atrial flutter ablation with Dr. Valdo Ott. She did undergo atrial flutter ablation successfully on 05/22/2017. That evening she went in to atrial fib with SVT and was successfully cardioverted on the morning of May 23, 2017. She has maintained sinus rhythm since that time. She was kept overnight for observation where she has done well. She has been up ambulating in her room with no groin site problems. She has had no breakthrou gh atrial fibrillation or atrial flutter. At this time she is stable. MEDICATIONS: She will go home on multivitamin 1 tab daily, aspirin 81 mg daily, Prilosec 20 mg daily , Actonel 150 mg every 30 days, pen VK 500 mg as needed for valve prophylaxis, Naprosyn 500 mg as nee ded, warfarin 5 mg at bedtime, sotalol 120 mg twice daily, gemfibrozil 600 mg twice daily, estrogen 1 .25 at bedtime, potassium chloride 20 mEq daily, Lasix 60 mg daily, [place]-3 fatty acid 1000 mg twice daily, calcium citrate/gluconate 1 tablet twice daily, Tylenol 325 mg to 650 mg every 4 hours as need ed for discomfort, not to exceed 3000 mg a day. PHYSICAL EXAMINATION: On day of discharge, blood pressure 141/86, heart rate 66 and regular, oxygen saturation 96%, temperature 36.6. court monitor shows a regular sinus rhythm with a rate of 65. Heart rate regular. No murmurs, rubs, or gallops. Lung sounds are clear to auscultation. No wheez es, rales, or rhonchi. Right groin site is intact with no bleeding or induration, but mild tendernes s. Femoral pulses are intact. Lower extremity pulses are intact and at 2+. HOSPITAL PROCEDURES: On 05/22/2017, she was DC cardioverted from atrial fibrillation to a regular si nus rhythm. This was successful. On 05/23/2017, electrophysiology procedure; indication, recurrent atrial flutter with known rheumatic heart disease, MVR, and significant LA/RA enlargement. SVT ablation. 3D mapping. CONCLUSION: 1. Rheumatoid arthritis tachycardia at site of septal incision during previous mitral valve regurgit ation surgery. 2. Conduction across the isthmus. 3. Successful ablation of atrial tachycardia. 4. Successful catheter mediation ablation of cavotricuspid isthmus, achieving bidirectional conducti on block across cavotricuspid isthmus. 5. Easily inducible atrial fibrillation post ablation of the above tachycardias. 6. No apparent complications. DISCHARGE PLAN: 1. She will be discharged home and follow up with Dr. Peguero in 2 weeks. Groin site instructions were given verbally and written. She was reminded no heavy lifting, pushing, or pulling greater than 10 p ounds for 1 week. No sitting in a tub of water for 1 week. It is okay for her to shower. 2. Resume regular diet. 3. Call office for appointment in 2 weeks or as previously scheduled. At this time, she currently is stable for discharge. /[id number]/MODL
--- NOTE | 2017-05-24 17:12 | ASDISCHSUM ---
Discharge Information Plan Status:Home with No Needs Medically Cleared to Leave:05/23/2017 Discharge Date:05/24/2017 10:15 AM CM D/C Disposition:Home, Routine, Self-Care ADT D/C Disposition:Home, Routine, Self-Care Projected Discharge Date:05/24/2017 10:15 AM Transportation at D/C:Family Discharge Delay Reason: Follow-Up Date:05/24/2017 10:15 AM Discharge Slot: Final Diagnosis: Placement Information Patient Contact Information Contact Name:MONIQUE Relationship: Address:[address] [facility] [place] Alternate Phone: [facility]/Zip Code:[place] [address] Email: Financial Information Financial Class: Primary Plan Desc:MEDICARE OUTPATIENT Primary Plan Number:[id number] Secondary Plan Desc:[employer] INDEMNITY Secondary Plan Number:[id number] Assessment Information [facility] Initial CM Assessment Living Arrangements What is your living Answers: With Spouse arrangement? Who do you live with? Type Of Residence What kind of residence do Answers: House you live in? Discharge Plan Comments Coordination Status Comments Notes: Pt is a 67 y/o female admitted for atrial flutter. Pt will most likely d/c independent when medically stable. No therapies ordered at this time. available for changes. Plan: Independent Date Signed: 05/23/2017 10:33 AM Electronically Signed By:ROSALINE Lombardo Intervention Information Intervention Type:*ZUNIGA-Signed Date of Service:05/23/2017 11:39 AM Patient Type:Observation Staff Member:Abel, Laya Hours: Discipline: Severity: Comment: Intervention Type:*Occurence 72 Date of Service:05/22/2017 10:59 AM Patient Type:Inpatient Staff Member:KELLY Zepeda Shelly Hours:0.25 Discipline: Severity:1 (0-1 Hours) Comment:Occ 72 for 05/22/2017 10:59 to 8 15:12 as patient discharged 05/24/2017 09:03 (< 2 MN LOS after patient admission status changed from observation to inpatient) .
--- NOTE | 2017-05-26 10:42 | CPEKG ---
Heart Rate: 62 RR Interval: 968 P-R Interval: 200 QRSD Interval: 100 QT Interval: 448 QTC Interval: 455 P [place]: 120 QRS [place]: 77 T Wave [place]: -64 EKG Severity - ABNORMAL ECG - EKG Impression: SINUS RHYTHM EKG Impression: ATRIAL PREMATURE COMPLEX EKG Impression: ABNORMAL T, CONSIDER ISCHEMIA, DIFFUSE LEADS Electronically Signed By: Salvador Peguero 26-May-2017 15:29:53
== END 2017-05-24 10:15 | disposition home or self-care (01) | DRG 274 ==
LOC: FCATH 06:56 → F2W 10:59 → OBSVTOIN 05-23 15:12
PROVIDERS: ADMIT Internal Medicine Cardiovascular Disease; ATTEND Internal Medicine Cardiovascular Disease
PROC: 02573ZZ Destruction of Left Atrium, Percutaneous Approach (ICD-10-PCS; principal; 2017-05-23)
PROC: 5A2204Z Restoration of Cardiac Rhythm, Single (ICD-10-PCS; principal; 2017-05-23)
PROC: 4A023FZ Measurement of Cardiac Rhythm, Percutaneous Approach (ICD-10-PCS; principal; 2017-05-23)
PROC: 02563ZZ Destruction of Right Atrium, Percutaneous Approach (ICD-10-PCS; principal; 2017-05-23)
DX: I48.92 Unspecified atrial flutter (principal); Z95.2 Presence of prosthetic heart valve; M06.9 Rheumatoid arthritis, unspecified; I47.1 Supraventricular tachycardia; E78.5 Hyperlipidemia, unspecified; I10 Essential (primary) hypertension
CPT/HCPCS: C1730; C1732; J0461; J1644; J2250; J2704; J3010

== ENCOUNTER → 2017-06-12 | Outpatient (CLI) | payer OTHER | LOC: BHLMT 09:00 | PROVIDERS: ATTEND Internal Medicine Cardiovascular Disease | DX: I48.92 Unspecified atrial flutter (principal) | CPT/HCPCS: 93225-PO; 93226-PO ==

== ENCOUNTER 2017-06-26 08:49 | Inpatient (IN) | payer OTHER ==
--- NOTE | 2017-06-26 09:58 | CPEKG ---
Heart Rate: 96 RR Interval: 625 P-R Interval: 213 QRSD Interval: 100 QT Interval: 384 QTC Interval: 486 P [place]: 0 QRS [place]: 74 T Wave [place]: -87 EKG Severity - ABNORMAL ECG - EKG Impression: SINUS RHYTHM EKG Impression: MULTIPLE ATRIAL PREMATURE COMPLEXES EKG Impression: BORDERLINE ST DEPRESSION, DIFFUSE LEADS EKG Impression: ABNORMAL T, CONSIDER ISCHEMIA, DIFFUSE LEADS EKG Impression: BORDERLINE PROLONGED QT INTERVAL Electronically Signed By: Salvador Peguero 26-Jun-2017 17:36:42
[2017-06-26] MEDS ORDERED: NON-FORMULARY NEW DRUG (Naproxen [Naproxen] 500 MG) PO PRN (10:20)
[2017-06-26] MEDS ORDERED: NON-FORMULARY NEW DRUG (Omeprazole [Prilosec 20 Mg] 20 MG) PO PRN (10:20)
[2017-06-26] MEDS ORDERED: NAPROXEN SODIUM 220 MG TAB PO PRN (10:34)
[2017-06-26] MEDS ORDERED: PANTOPRAZOLE SODIUM 40 MG TAB PO PRN (10:35)
[2017-06-26] MEDS: DOFETILIDE 0.25 MG CAP PO SCH ×2 (10:36→21:03)
[2017-06-26 11:25] LABS: PLATELET COUNT 262 10^3/uL (150-400)
[2017-06-26 11:35] LABS: INR 4.58 (0.83-1.16); PROTIME(PATIENT) 42.8 SEC (12.0-15.0)
--- NOTE | 2017-06-26 12:21 | CPEKG ---
Heart Rate: 88 RR Interval: 682 P-R Interval: 136 QRSD Interval: 96 QT Interval: 408 QTC Interval: 494 P [place]: -72 QRS [place]: 70 T Wave [place]: -87 EKG Severity - ABNORMAL ECG - EKG Impression: SINUS OR ECTOPIC ATRIAL RHYTHM EKG Impression: NONSPECIFIC REPOL ABNORMALITY, DIFFUSE LEADS EKG Impression: BORDERLINE PROLONGED QT INTERVAL Electronically Signed By: Salvador Peguero 26-Jun-2017 17:36:04
--- NOTE | 2017-06-26 14:39 | PDCARPN ---
Cardiology Progress Note Chief Complaint: PAF Assessment/Plan: Assessment: 67-y/o F PMH (?) rheumatic MV disease s/p MV surgery age 23, followed by bioMVR 8-9 years later; mechanical MVR 1991; PAF starting in 2011; Sotalol since 2011; RAT ablation; T2DM; here for Tikosyn titration. #. PAF: more AF despite being on Sotalol has held Sotalol for > 48 hours start Tikosyn 500 mcg now #. htn: BP elevated will monitor #. T2DM: on Metformin monitor BS and continue outpatient regimen #. DVT ppx: continue Warfarin and plan for early ambulation #. LOS: >48 hours for high risk drug titration 06/26/17 13:13 Subjective: Feels fine. Does not feel AF currently. Objective: Vital Signs (8 Hrs) Temp Pulse Resp BP Pulse Ox 06/26/17 11:29 97.7 F 85 17 153/79 H 94 06/26/17 09:03 97.7 F 94 20 151/79 H 94 Intake/Output (24 Hrs) 06/25/17 06/26/17 06/27/17 05:59 05:59 05:59 Other: Weight 77.5 kg Result Diagrams: 06/26/17 11:11 06/26/17 11:11 EKG: AF with diffuse ST-T w abn - Physical Exam Constitutional: no apparent distress Eyes: PERRL Ears, Nose, Mouth, Throat: moist mucous membranes Cardiovascular: systolic murmur, irregularly irregular Respiratory: clear to auscultate bilat, no crackles Neurologic: AAOx3 Psychiatric: cooperative, interactive ICD10 Worksheet Patient Problems: Problems Problem Status Onset Atrial flutter Acute Valvular heart disease Acute
[2017-06-26] MEDS ORDERED: WARFARIN SODIUM 5 MG TAB PO SCH (16:00)
[2017-06-26] MEDS ORDERED: PROTOCOL POTASSIUM 1 DOSE MISC PRN (16:37)
[2017-06-26] MEDS ORDERED: PROTOCOL MAGNESIUM 1 DOSE IV PRN (16:37)
[2017-06-26] MEDS ORDERED: POTASSIUM CL 10 MEQ TAB PO ONE (16:56)
[2017-06-26] MEDS ORDERED: MAGNESIUM SULF 2 GM/WATER 50 ML IV ONE (16:59)
[2017-06-26] MEDS: GEMFIBROZIL 600 MG TAB PO SCH (17:49)
[2017-06-26] MEDS ORDERED: ESTROGENS CONJUGATED 1.25 MG PO SCH (21:00)
[2017-06-26] MEDS: ESTROGENS,CONJUGATED 0.625 MG TAB PO SCH (21:04)
[2017-06-26] MEDS: OMEGA-3 FATTY ACIDS 1,000 MG CAP PO SCH (21:04)
[2017-06-26] MEDS: ASPIRIN 81 MG CHEWABLE TAB PO SCH (21:04)
--- NOTE | 2017-06-26 23:03 | CPEKG ---
Heart Rate: 85 RR Interval: 706 P-R Interval: 176 QRSD Interval: 96 QT Interval: 444 QTC Interval: 528 P [place]: 253 QRS [place]: 74 T Wave [place]: -87 EKG Severity - ABNORMAL ECG - EKG Impression: SINUS OR ECTOPIC ATRIAL RHYTHM EKG Impression: NONSPECIFIC REPOL ABNORMALITY, DIFFUSE LEADS EKG Impression: PROLONGED QT INTERVAL Electronically Signed By: Salvador Peguero 27-Jun-2017 08:30:01
[2017-06-27 04:38] LABS: INR 3.62 (0.83-1.16); PROTIME(PATIENT) 35.8 SEC (12.0-15.0)
[2017-06-27] MEDS ORDERED: POTASSIUM CL 10 MEQ TAB PO ONE ×3 (08:12→20:29)
[2017-06-27] MEDS: MULTIVITAMINS 1 EACH TAB PO SCH (08:25)
[2017-06-27] MEDS: FUROSEMIDE 40 MG TAB PO SCH (08:25)
[2017-06-27] MEDS: GEMFIBROZIL 600 MG TAB PO SCH ×2 (08:25→17:30)
[2017-06-27] MEDS: OMEGA-3 FATTY ACIDS 1,000 MG CAP PO SCH ×2 (08:26→20:30)
[2017-06-27] MEDS: POTASSIUM CL 20 MEQ TAB PO SCH (08:27)
[2017-06-27] MEDS: ACETAMINOPHEN 325 MG TAB PO PRN ×2 (08:59→13:36)
[2017-06-27] MEDS ORDERED: DOFETILIDE 0.25 MG CAP PO SCH (09:00)
[2017-06-27] MEDS: DOFETILIDE 0.125 MG CAP PO SCH ×2 (09:00→20:29)
--- NOTE | 2017-06-27 09:41 | ASMTCASEMG ---
Living Arrangements What is your living Answers: With Spouse arrangement? Who do you live with? Type Of Residence What kind of residence do Answers: House you live in? Discharge Plan Comments Coordination Status Comments Notes: Pt is a 67 y/o female admitted for tykosin loading. Pt will most likely d/c independent when medically stable. No therapies ordered at this time. CM available for changes. Plan: Independent Date Signed: 06/27/2017 09:41 AM Electronically Signed By:ROSALINE Lombardo
--- NOTE | 2017-06-27 11:39 | CPEKG ---
Heart Rate: 86 RR Interval: 698 P-R Interval: 181 QRSD Interval: 100 QT Interval: 436 QTC Interval: 522 P [place]: 0 QRS [place]: 63 T Wave [place]: -78 EKG Severity - ABNORMAL ECG - EKG Impression: SINUS RHYTHM EKG Impression: PROLONGED QT INTERVAL Electronically Signed By: Salvador Peguero 27-Jun-2017 17:03:11
--- NOTE | 2017-06-27 15:12 | PDCARPN ---
Cardiology Progress Note Chief Complaint: AF Assessment/Plan: Assessment: 67-y/o F PMH (?) rheumatic MV disease s/p MV surgery age 23, followed by bioMVR 8-9 years later; mechanical MVR 1991; PAF starting in 2011; Sotalol since 2011; RAT ablation; T2DM; here for Tikosyn titration. #. PAF: more AF despite being on Sotalol has held Sotalol for > 48 hours started Tikosyn and dose now 375 mcg BID #. htn: BP currently normotensive #. T2DM: on Metformin monitor BS and continue outpatient regimen #. hypokalemia: on repletion protocol #. DVT ppx: continue Warfarin and plan for early ambulation #. LOS: >48 hours for high risk drug titration 06/27/17 15:08 Subjective: Feels well. Reviewed/Discussed With: other (Dr. Ott) Objective: Vital Signs (8 Hrs) Temp Pulse Resp BP Pulse Ox 06/27/17 11:10 98.0 F 86 14 129/80 H 92 06/27/17 08:05 98.1 F 82 20 136/81 H 97 Intake/Output (24 Hrs) 06/26/17 06/27/17 06/28/17 05:59 05:59 05:59 Intake Total 400 Balance 400 Intake: Oral (ml) 400 Other: Weight 77.5 kg Number of Voids Toilet 2 Result Diagrams: 06/26/17 11:11 06/27/17 03:15 Telemetry: Regular rhythm - Physical Exam Constitutional: no apparent distress Eyes: PERRL Ears, Nose, Mouth, Throat: moist mucous membranes Cardiovascular: regular rate and rhythm (prosthetic heart sounds) Respiratory: clear to auscultate bilat, no crackles Neurologic: AAOx3 Psychiatric: cooperative, interactive ICD10 Worksheet Patient Problems: Problems Problem Status Onset Atrial flutter Acute Valvular heart disease Acute
[2017-06-27] MEDS: ASPIRIN 81 MG CHEWABLE TAB PO SCH (20:30)
[2017-06-27] MEDS: ESTROGENS,CONJUGATED 0.625 MG TAB PO SCH (20:31)
--- NOTE | 2017-06-27 22:30 | CPEKG ---
Heart Rate: 90 RR Interval: 667 P-R Interval: 174 QRSD Interval: 94 QT Interval: 408 QTC Interval: 500 P [place]: 0 QRS [place]: 69 T Wave [place]: 262 EKG Severity - BORDERLINE ECG - EKG Impression: SINUS RHYTHM EKG Impression: BORDERLINE PROLONGED QT INTERVAL EKG Impression: Inferolateral STT changes Electronically Signed By: Salvador Peguero 28-Jun-2017 07:27:44
[2017-06-28] MEDS ORDERED: DOFETILIDE 0.125 MG CAP PO SCH
[2017-06-28 07:24] VITALS: BP 144/84; PULSE 79; RESP 18; TEMP 97.9; O2SAT 97
[2017-06-28] MEDS ORDERED: POTASSIUM CL 10 MEQ TAB PO ONE (09:00)
[2017-06-28] MEDS: GEMFIBROZIL 600 MG TAB PO SCH (09:34)
[2017-06-28] MEDS: POTASSIUM CL 20 MEQ TAB PO SCH (09:36)
[2017-06-28] MEDS: OMEGA-3 FATTY ACIDS 1,000 MG CAP PO SCH (09:36)
[2017-06-28] MEDS: DOFETILIDE 0.125 MG CAP PO SCH (09:36)
[2017-06-28] MEDS: FUROSEMIDE 40 MG TAB PO SCH (09:37)
[2017-06-28] MEDS: MULTIVITAMINS 1 EACH TAB PO SCH (09:37)
[2017-06-28 10:21] LABS: INR 2.16 (0.83-1.16); PROTIME(PATIENT) 24.1 SEC (12.0-15.0)
--- NOTE | 2017-06-28 11:05 | CPEKG ---
Heart Rate: 91 RR Interval: 659 QRSD Interval: 96 QT Interval: 420 QTC Interval: 517 QRS [place]: 72 T Wave [place]: -82 EKG Severity - ABNORMAL ECG - EKG Impression: ACCELERATED JUNCTIONAL RHYTHM EKG Impression: ABNORMAL T, CONSIDER ISCHEMIA, DIFFUSE LEADS EKG Impression: PROLONGED QT INTERVAL Electronically Signed By: Salvador Peguero 29-Jun-2017 06:19:58
--- NOTE | 2017-06-28 11:53 | GDS ---
[f rep st] DISCHARGE SUMMARY DISCHARGE DIAGNOSES: 1. Paroxysmal atrial fibrillation status post Tikosyn titration on this admission. 2. Hypertension. 3. Type 2 diabetes mellitus. 4. Hypokalemia. 5. History of mitral valve disease, status post multiple mitral valve surgeries. 6. History of recent right atrial tachycardia ablation. PROCEDURES: None. BRIEF HISTORY: Please see dictated H and P by Dr. Ott from office. In brief, the patient is a 67-y ear-old female with a questionable history of rheumatic mitral valve disease with first mitral valve surgery dating to when she was 23 years old. This was [facility] valve replace ment 8-9 years later. In 1991, she had another mitral valve replacement with a mechanical valve. In 2011, she started to have bouts of paroxysmal atrial fibrillation. She has been on sotalol which [place] s mostly controlled her Afib since then. Recently, she had more elevated heart rates and had a right atrial tachycardia that was ablated a few months back. She presents with more episodes of Afib. HOSPITAL COURSE BY PROBLEM: 1. Paroxysmal Afib. She has responded well to Tikosyn and is currently in sinus rhythm. Her discha rge dose will be 375 mcg p.o. b.i.d. 2. Hypokalemia. Her potassium was replaced, she may resume her outpatient regimen. 3. History of mechanical mitral valve. Her INR is 2.16 at the time of discharge. She will need a r epeat INR in 4 days. RESULTS PENDING: None. DIET: Per previous. PHYSICAL EXAM: VITAL SIGNS: On day of discharge, blood pressure 144/84, heart rate 79, respirations 18, O2 saturation 97% on room air. GENERAL: She is a pleasant female in no apparent distress. HEA RT: Regular rate and rhythm with prosthetic mitral valve sounds. LUNGS: Are clear. SKIN: Warm an d dry. LABORATORY DATA: BMP with sodium 141, potassium 3.3 repleted to 3.8, chloride 103, CO2 26, BUN 11, c reatinine 0.7, glucose 87. Magnesium 1.9. CBC with WBC 9.41, hemoglobin 14.5, hematocrit 42.4, plate let count 262, INR on day of admission was 4.58 and so her warfarin was held for 2 days. On day of d ischarge, her INR is 2.16. She is advised to resume her warfarin today. DISCHARGE MEDICATIONS: Please see med reconciliation for complete details. She is being discharged on potassium 20 mEq daily, warfarin 5 mg p.o. daily, Actonel, omeprazole, fish oil, naproxen p.r.n., multivitamin, gemfibrozil, furosemide 60 mg p.o. daily, estrogen, aspirin, Tylenol p.r.n., Tikosyn 37 5 mcg p.o. b.i.d. DISCHARGE INSTRUCTIONS: 1. Please resume your warfarin today. You will need an INR on of next week. 2. Follow up with Dr. Ott as scheduled. 3. Follow up with Dr. Quarles as scheduled. /[id number]/MODL
--- NOTE | 2017-06-28 11:58 | ASMTLACE ---
LACE Length of stay for Answers: 2 days current admission Acuity / Level of Answers: Yes Care: Did the patient have an inpatient admission? Comorbidities - select Answers: Diabetes (uncontrolled or all that apply controlled) Other Notes: HTN, Rheumatic MV, hypokalemia # of Emergency department Answers: 0 visits in the last 6 months Score: 7 Date Signed: 06/28/2017 11:57 AM Electronically Signed By:Tootie Scruggs RN
--- NOTE | 2017-06-28 13:56 | ASDISCHSUM ---
Discharge Information Plan Status:Home with No Needs Medically Cleared to Leave:06/27/2017 Discharge Date:06/28/2017 12:11 PM CM D/C Disposition:Home, Routine, Self-Care ADT D/C Disposition:Home, Routine, Self-Care Projected Discharge Date:06/28/2017 12:11 PM Transportation at D/C: Discharge Delay Reason: Follow-Up Date:06/28/2017 12:11 PM Discharge Slot: Final Diagnosis: Placement Information Patient Contact Information Contact Name:MONIQUE Relationship: Address:[address] [facility] [place] Alternate Phone: State/Zip Code:[place] [address] Email: Financial Information Financial Class:Medicare Primary Plan Desc:MEDICARE INPATIENT Primary Plan Number:[id number] Secondary Plan Desc:[employer] [place] INDE[employer]ITY Secondary Plan Number:[id number] Assessment Information LACE LACE Length of stay for Answers: 2 days current admission Acuity / Level of Answers: Yes Care: Did the patient have an inpatient admission? Comorbidities - select Answers: Diabetes (uncontrolled or all that apply controlled) Other Notes: HTN, Rheumatic MV, hypokalemia # of Emergency department Answers: 0 visits in the last 6 months Score: 7 Date Signed: 06/28/2017 11:57 AM Electronically Signed By:Tootie Scruggs RN [facility] Initial CM Assessment Living Arrangements What is your living Answers: With Spouse arrangement? Who do you live with? Type Of Residence What kind of residence do Answers: House you live in? Discharge Plan Comments Coordination Status Comments Notes: Pt is a 67 y/o female admitted for tykosin loading. Pt will most likely d/c independent when medically stable. No therapies ordered at this time. CM available for changes. Plan: Independent Date Signed: 06/27/2017 09:41 AM Electronically Signed By:ROSALINE Lombardo Case Management Discharge Plan Note Case Management Discharge Discharge Order Complete? Answers: Yes Patient to Obtain Answers: Independently Medications Transportation Arranged Answers: Family/Friends Discharge Comments Notes: 06/28/2017 Case Management d/c note. Pt to d/c independent with follow up as directed. There were no PT or OT evals ordered. Pt has family support. There are no further case management d/c needs identified. Date Signed: 06/28/2017 11:55 AM Electronically Signed By:Tootie Scruggs RN Intervention Information Intervention Type:*IM-Signed Date of Service:06/28/2017 12:04 PM Patient Type:Inpatient Staff Member:KELLY Scruggs, Tootie Hours:0.25 Discipline: Severity: Comment:
== END 2017-06-28 12:11 | disposition home or self-care (01) | DRG 310 ==
LOC: F2W 08:49
PROVIDERS: ADMIT Internal Medicine Cardiovascular Disease; ATTEND Internal Medicine Cardiovascular Disease
PROC: 3E033GC Introduction of Other Therapeutic Substance into Peripheral Vein, Percutaneous Approach (ICD-10-PCS; principal; 2017-06-26)
DX: I48.0 Paroxysmal atrial fibrillation (principal); I48.92 Unspecified atrial flutter; E87.6 Hypokalemia; I10 Essential (primary) hypertension; Z95.2 Presence of prosthetic heart valve; E11.9 Type 2 diabetes mellitus without complications; Z79.01 Long term (current) use of anticoagulants; E66.9 Obesity, unspecified; Z68.30 Body mass index [BMI] 30.0-30.9, adult; Z86.73 Personal history of transient ischemic attack (TIA), and cerebral infarction without residual deficits
CPT/HCPCS: J3475

== ENCOUNTER 2017-07-10 10:20 | Day surgery (SDC) | payer OTHER ==
[2017-07-10] MEDS ORDERED: NS 500 ML IV ONE (10:37)
[2017-07-10] MEDS ORDERED: fentaNYL 100 MCG/2 ML INJ IVP ONE (10:37)
[2017-07-10] MEDS ORDERED: ATROPINE SULFATE 1 MG/10 ML SYR IVP ONE (10:37)
[2017-07-10] MEDS ORDERED: BENZOCAINE UNIT DOSE SPRAY HURRICAINE MM ONE (10:37)
[2017-07-10] MEDS ORDERED: MIDAZOLAM 2 MG/2 ML VIAL IVP ONE (10:37)
[2017-07-10] MEDS ORDERED: PROPOFOL 200 MG/20 ML VIAL ONE (11:23)
--- NOTE | 2017-07-10 11:25 | PDANEPAE ---
ANE History of Present Illness AFIB ANE Past Medical History - Cardiovascular History Hx Arrhythmias: Yes Hx Chest Pain: No Hx Coronary Artery / Peripheral Vascular Disease: No Hx CHF / Valvular Disease: Yes Hx Palpitations: No - Pulmonary History Hx COPD: No Hx Asthma/Reactive Airway Disease: No Hx Recent Upper Respiratory Infection: No Hx Oxygen in Use at Home: No Hx Sleep Apnea: Yes - Neurologic History Hx Cerebrovascular Accident: Yes Hx Seizures: No Hx Dementia: No - Endocrine History Hx Diabetes: No - Renal History Hx Renal Disorders: No - Liver History Hx Hepatic Disorders: No - Neurological & Psychiatric Hx Hx Neurological and Psychiatric Disorders: No - Chronic Pain History Chronic Pain: No ANE Review of Systems Review of Systems: ANE Patient History - Allergies Allergies/Adverse Reactions: No Known Allergies Allergy (Verified 02/12/17 14:53) - Home Medications Home Medications: Aspirin [Aspirin 81mg (*)] 81 mg PO HS 10/29/16 [Last Taken 06/25/17] Estrogens, Conjugated [Premarin] 1.25 mg PO HS 10/29/16 [Last Taken 06/25/17] Gemfibrozil [Lopid 600 MG (*)] 600 mg PO BIDAC 10/29/16 [Last Taken 06/26/17] Multivitamins [Multivitamin (*)] 1 tab PO DAILY 10/29/16 [Last Taken 06/26/17] Naproxen 500 mg PO DAILY PRN 10/29/16 [Last Taken 02/11/17] Omeprazole [Prilosec 20 mg] 20 mg PO DAILY PRN 10/29/16 [Last Taken 02/11/17] Penicillin V Potassium [Pen Vk 500mg (*)] 500 mg PO AD PRN 10/29/16 [Last Taken Unknown] Risedronate Sodium [Actonel] 150 mg PO Q30D 10/29/16 [Last Taken 06/05/17] Warfarin Sodium [Coumadin 5MG (*)] 5 mg PO DAILY@16 10/29/16 [Last Taken ] Furosemide [Lasix 40 MG (*)] 60 mg PO DAILY 02/12/17 [Last Taken 06/26/17] Potassium Cl [Klor-Con 20 meq (*)] 20 meq PO DAILY 02/12/17 [Last Taken 06/26/17 ] Brothers-3 Fatty Acids [Fish Oil 1000 mg (*)] 1,000 mg PO BID 05/17/17 [Last Taken Unknown] Herbals/Supplements -Info Only 1 ea PO DAILY 06/26/17 [Last Taken Unknown] - Smoking Hx Smoking Status: Never smoked ANE Labs/Vital Signs - Labs Result Diagrams: 07/10/17 10:45 ANE Physical Exam - Airway Neck exam: FROM Mallampati Score: Class 2 Mouth exam: normal dental/mouth exam - Pulmonary Pulmonary: no respiratory distress - Cardiovascular Cardiovascular: regular rate and rhythym - ASA Status ASA Status: IV ANE Anesthesia Plan Total IV Anesthesia: Yes
[2017-07-10] MEDS ORDERED: ADENOSINE 6 MG/2 ML VIAL ONE (11:30)
[2017-07-10 11:32] LABS: INR 3.36 (0.83-1.16); PROTIME(PATIENT) 33.8 SEC (12.0-15.0)
--- NOTE | 2017-07-10 11:49 | CPEKG ---
Heart Rate: 84 RR Interval: 714 P-R Interval: 354 QRSD Interval: 106 QT Interval: 460 QTC Interval: 544 P [place]: 0 QRS [place]: 70 T Wave [place]: -40 EKG Severity - ABNORMAL ECG - EKG Impression: SINUS RHYTHM EKG Impression: ATRIAL PREMATURE COMPLEX EKG Impression: FIRST DEGREE AV BLOCK EKG Impression: NONSPECIFIC T ABNORMALITIES, INFERIOR LEADS EKG Impression: PROLONGED QT INTERVAL Electronically Signed By: Yordan Salmeron 11-Jul-2017 12:37:34
[2017-07-10] MEDS ORDERED: METOPROLOL TARTRATE 50 MG TAB PO ONE (12:45)
[2017-07-10 12:46] VITALS: BP 135/80; PULSE 84
--- NOTE | 2017-07-11 08:25 | EPPROC ---
Electrophysiology Procedure Note: Procedure: Adenosine injection to evaluate underlying rhythm and CV Indication: AT/Aflutter/AF Procedure: Pt sedated. EKG attached. Adenosine 6mg and then 12mg given. Underlying rhythm appeared to be AF. Synchronized DCCV with 200J X2 performed. (with changes in patch position between two attempts) Pt continued to be in AF Conclusion: Chronic AF with failed DCCV Patient Problems: Problems Problem Status Onset Atrial flutter Acute Valvular heart disease Acute
--- NOTE | 2017-07-16 10:51 | CPEKG ---
Heart Rate: 169 RR Interval: 355 P-R Interval: 356 QRSD Interval: 86 QT Interval: 299 QTC Interval: 502 P [place]: 0 QRS [place]: 70 T Wave [place]: -88 EKG Severity - ABNORMAL ECG - EKG Impression: SUPRAVENTRICULAR TACHYCARDIA EKG Impression: REPOLARIZATION ABNORMALITY, PROB RATE RELATED Electronically Signed For: Salvador Peguero 16-Jul-2017 10:52:03
== END 2017-07-10 14:11 | disposition home or self-care (01) ==
LOC: FCATH 10:20
PROVIDERS: ATTEND Internal Medicine Cardiovascular Disease
PROC: 5A2204Z Restoration of Cardiac Rhythm, Single (ICD-10-PCS; principal; 2017-07-10)
DX: I48.92 Unspecified atrial flutter (principal); I48.2 Chronic atrial fibrillation
CPT/HCPCS: J0153; J2704

== ENCOUNTER 2017-10-09 07:11 | Observation (INO) | payer OTHER ==
[2017-10-09] MEDS ORDERED: NS 1,000 ML IV ONE (07:15)
[2017-10-09] MEDS ORDERED: ceFAZolin 2 GM/DEXTROSE 100 ML IV ONE (07:15)
[2017-10-09] MEDS ORDERED: DIAZEPAM 5 MG TAB PO ONE (07:15)
[2017-10-09] MEDS ORDERED: BACITRACIN IRRIGATION/NS 50,000 UNITS/1,000 ML BTL IRR ONE (07:15)
[2017-10-09] MEDS ORDERED: diphenhydrAMINE 25 MG CAP PO ONE (07:15)
--- NOTE | 2017-10-09 07:30 | CPEKG ---
Heart Rate: 113 RR Interval: 531 QRSD Interval: 100 QT Interval: 364 QTC Interval: 500 QRS [place]: 82 T Wave [place]: -75 EKG Severity - ABNORMAL ECG - EKG Impression: LIKELY ATRIAL FLUTTER VERSUS SINUS TACHYCARDIA WITH DIMINUTIVE P-WAVES EKG Impression: BORDERLINE RIGHT AXIS DEVIATION EKG Impression: PROLONGED QT INTERVAL EKG Impression: COMPARED WITH 07/10/2017 HEART RATE FASTER, POSSIBLE ATRIAL ARRHYTHMIA PRESENT Electronically Signed By: Torie Gutierrez 09-Oct-2017 08:37:53
[2017-10-09 07:47] LABS: PLATELET COUNT 275 10^3/uL (150-400)
[2017-10-09 07:56] LABS: INR 1.91 (0.83-1.16)
[2017-10-09] MEDS ORDERED: LIDOCAINE 1% 300 MG/30 ML SDV ONE (08:18)
[2017-10-09] MEDS ORDERED: BUPIVACAINE 0.5% 30 ML SDV ONE (08:19)
[2017-10-09] MEDS ORDERED: MIDAZOLAM 2 MG/2 ML VIAL ONE ×3 (08:19→10:13)
[2017-10-09] MEDS ORDERED: fentaNYL 100 MCG/2 ML INJ ONE (08:19)
--- NOTE | 2017-10-09 08:49 | PDGENHP ---
History & Physical Chief Complaint: fatigue and soa History of Present Illness: rheumatic heart disease, MVR, Af Pertinent Past, Social, Family History: Reviewed and unchanged Relevant Physical Exam: cta no rales rhonchii rub Cardiorespiratory Assessment: s1s2 irregular no s3 no murmurs
--- NOTE | 2017-10-09 08:49 | PDPROPOC ---
Sedation Plan of Care Sedation Plan of Care: vital signs stable, mental status noted, patient educated of risks, benefits, alternatives, patient can tolerate sedation ASA Classification: ASA 3 Planned drugs: fentanyl, midazolam Mallampati Score: Class 3 Mallampati Reference Image: Patient passed 3-3-2 rule?: Yes
[2017-10-09] MEDS ORDERED: LIDO/EPI 1% **for epidural** 30 ML SDV ONE (09:09)
[2017-10-09] MEDS ORDERED: ACETAMINOPHEN 325 MG TAB PO PRN (10:12)
[2017-10-09] MEDS ORDERED: PENICILLIN VK 500 MG TAB PO PRN (10:12)
[2017-10-09] MEDS ORDERED: Risedronate Sodium [Actonel] 150 MG PO SCH (10:15)
[2017-10-09] MEDS ORDERED: OXYCODONE/APAP 5/325 TAB PO PRN (11:37)
[2017-10-09] MEDS ORDERED: NAPROXEN SODIUM 220 MG TAB PO PRN (13:15)
--- NOTE | 2017-10-09 13:50 | CPEKG ---
Heart Rate: 102 RR Interval: 588 QRSD Interval: 102 QT Interval: 396 QTC Interval: 516 QRS [place]: 71 T Wave [place]: -63 EKG Severity - ABNORMAL ECG - EKG Impression: ATRIAL FIBRILLATION EKG Impression: PROLONGED QT INTERVAL EKG Impression: COMPARED WITH 10/09/2017 AT 7:28 A.M., RHYTHM APPEARS MORE CONSISTENT WITH ATRIAL EKG Impression: FIBRILLATION Electronically Signed By: Torie Gutierrez 09-Oct-2017 18:17:22
--- NOTE | 2017-10-09 15:16 | EPPROC ---
Electrophysiology Procedure Note: PROCEDURE PERFORMED: 1. Implantation of an A/V Pacemaker 3. Fluoroscopy INDICATION: This is a 67 yr old with AF with RVR and the pt was very symptomatic with it. This persisted despite multiple AV yasemin and hence it was decided to do pacemaker implant with AV node ablation in the future PROCEDURE NOTE: Patient presented to the cardiac catheterization laboratory in a fasting, post absorptive state . EP RN administered sedation. The left infraclavicular area was prepped and draped in the usual sterile fashion. Lidocaine plus bupivacaine was used for local anesthesia. Using a combination of blunt and sharp dissection and electrocautery, the dissection was carried down to the prepectoral fascia. All bleeding was controlled with electrocautery. Fluoroscopy was utilized during the entire procedure for venous access and placement of the leads. Using usual technique, left cephalic vein was accessed and with the help of glidewire a 9F sheath was placed. Placement of the guidewires into the venous system was confirmed by low-pressure blood return and also by visualizing the guidewires advancing into the inferior vena cava. A purse string suture was applied around the guidewires. Two #7 [place] sheaths were advanced under fluoroscopic guidance over the guidewire. An active fixation ventricular lead was advanced into the right ventricular apex and screwed in place. An active fixation atrial lead was advanced into the right atrial appendage and screwed in place. The peel away sheaths were removed. Pacing thresholds, sensing parameters and lead impedances were measured. There was no diaphragmatic stimulation at maximum output. The leads were sutured to the prepectoral fascia with 3 nonabsorbable sutures each. The pocket was again inspected for any bleeding. The leads were attached to the pacemaker securely. The pacemaker was inserted into the pocket and secured in place with a nonabsorbable suture. Fluoroscopy was performed in FIERRO and LATESHA planes to verify right-sided placement of the leads. Also fluoroscopy of the pacemaker pocket was performed. The pacemaker pocket was closed in 3 layers with absorbable monocryl sutures.. Appropriate dressing was applied. The patient left the cardiac catheterization laboratory in stable condition. Serial Numbers: 1. Device: Biotronik Edora 8 DR Colon SN [id number] 2. Atrial Lead: Biotronik Solia S45 SN [id number] 3. Ventricular Lead: Biotronik Solia S53 SN [id number] Stimulation Thresholds & Impedance Measurements: 1. Atrial Lead 1.3mv, n/a, 564Ohms 3. Ventricular Lead 8.3mV, 0.5@0.4ms, 624Ohms Saul Pacing Parameters 1. Pacing mode: DDDR 2. Lower rate: 60ppm 3. Upper tracking rate: 130 ppm 4. Upper sensor rate: 130 ppm Patient Problems: Problems Problem Status Onset Atrial flutter Acute Valvular heart disease Acute
[2017-10-09] MEDS ORDERED: ONDANSETRON 4 MG/2 ML VIAL ONE (15:17)
[2017-10-09] MEDS ORDERED: ONDANSETRON 4 MG/2 ML VIAL IVP PRN (15:21)
[2017-10-09] MEDS ORDERED: WARFARIN SODIUM 5 MG TAB PO SCH (16:00)
[2017-10-09] MEDS: GEMFIBROZIL 600 MG TAB PO SCH (17:13)
[2017-10-09] MEDS: METOPROLOL TARTRATE 50 MG TAB PO SCH (20:17)
[2017-10-09] MEDS: OMEGA-3 FATTY ACIDS 1,000 MG CAP PO SCH (20:17)
[2017-10-09] MEDS: DILTIAZEM CD 120 MG CAP PO SCH (20:17)
[2017-10-09] MEDS ORDERED: ASPIRIN 81 MG CHEWABLE TAB PO SCH (21:00)
[2017-10-09] MEDS ORDERED: ESTROGENS,CONJUGATED 0.3 MG TAB PO SCH (21:00)
[2017-10-10 04:12] LABS: PLATELET COUNT 220 10^3/uL (150-400)
[2017-10-10 08:38] VITALS: BP 134/83
[2017-10-10] MEDS ORDERED: MULTIVITAMINS 1 EACH TAB PO SCH (09:00)
[2017-10-10] MEDS ORDERED: PANTOPRAZOLE SODIUM 40 MG TAB PO PRN (09:00)
[2017-10-10] MEDS ORDERED: POTASSIUM CL 20 MEQ TAB PO SCH (09:00)
[2017-10-10] MEDS ORDERED: Herbals/Supplements -Info Only PO SCH (09:00)
[2017-10-10] MEDS ORDERED: FUROSEMIDE 40 MG TAB PO SCH (09:00)
[2017-10-10] MEDS: DILTIAZEM CD 120 MG CAP PO SCH (09:08)
[2017-10-10] MEDS: GEMFIBROZIL 600 MG TAB PO SCH (09:08)
[2017-10-10] MEDS: OMEGA-3 FATTY ACIDS 1,000 MG CAP PO SCH (09:08)
[2017-10-10] MEDS: METOPROLOL TARTRATE 50 MG TAB PO SCH (09:09)
[2017-10-10] MEDS ORDERED: fentaNYL 100 MCG/2 ML INJ IVP ONE (09:25)
--- NOTE | 2017-10-10 10:02 | CPEKG ---
Heart Rate: 112 RR Interval: 536 QRSD Interval: 104 QT Interval: 356 QTC Interval: 486 QRS [place]: 96 T Wave [place]: -74 EKG Severity - ABNORMAL ECG - EKG Impression: ATRIAL FIBRILLATION. PVC VS PACED BEAT EKG Impression: RIGHT AXIS DEVIATION EKG Impression: ABNORMAL T, CONSIDER ISCHEMIA, INFERIOR LEADS EKG Impression: BORDERLINE PROLONGED QT INTERVAL Electronically Signed By: Torie Gutierrez 11-Oct-2017 10:25:22
--- NOTE | 2017-10-10 11:51 | GDS ---
[f rep st] DISCHARGE SUMMARY ADMISSION DIAGNOSIS: 1. Permanent atrial fibrillation. 2. Atrial flutter. 3. Remote history of valvular heart disease, status post mechanical mitral valve implantation in 199 2. 4. History of previous cerebrovascular accident. 5. Hyperlipidemia. 6. Hypertension. DISCHARGE DIAGNOSES: 1. Status post Biotronik permanent pacemaker implantation with atrial and ventricular leads. 2. Permanent atrial fibrillation. 3. Paroxysmal atrial flutter. 4. History of valvular heart disease with remote mechanical mitral valve implantation. 5. Hypertension. 6. Hyperlipidemia. PROCEDURES PERFORMED DURING HOSPITALIZATION: 1. Electrocardiogram. 2. Dual chambered Biotronik pacemaker implantation with atrial and ventricular device implantation. 3. Chest x-ray. BRIEF HISTORY: Please see H and P: Briefly, this patient is a 67-year-old female with previous hist ory of mitral valve disease in which she underwent mechanical valve implantation in 1991. She has be en noted to have significant episodes of reoccurrence of atrial fibrillation with rapid ventricular r esponse. She has been tried on antiarrhythmic therapy, unfortunately has not been able to maintain s inus rhythm. She recently saw Dr. Ott, and due to her ongoing episodes of atrial fibrillation, desp ite medical therapy, it was decided that she be considered to undergo AV node ablation. She underwen t permanent pacemaker implantation in preparation for this procedure. HOSPITAL COURSE: Patient was admitted to the hospital, prepped for her procedure, taken to the elect rophysiology lab where she had a dual-chambered Biotronik pacemaker implanted with both atrial and ve ntricular leads. No apparent complications. She was transferred back to the CVC, and ultimately to the PCU for overnight observation. There, she has been remained in AFib with varying rates between 8 0 to 110 beats per minute. She denies any chest pain, shortness of breath, or symptoms suggesting of ischemia. She has been up and walking in the unit without any difficulty or symptoms of lightheaded ness, near-syncope or syncopal events. PHYSICAL EXAMINATION: GENERAL APPEARANCE: Today, mildly obese, female. She is alert and oriented to person, place, time, and situation. Appears to be under no acute distress. VITAL SIGNS: Current vital signs are 134/83, heart rate is 100 beats per minute, respirations 18, saturating 95% on room air, temperature of 36.8 degrees Celsius. HEENT: Head is normocephalic. Lips and tongue a re pink and moist with no signs of cyanosis. Conjunctivae pink. NECK: Trachea is midline, +2 carot id pulses bilateral. No auscultated bruits, no jugular vein distention. RESPIRATORY: Lungs are juana ar to auscultation, no rhonchi, rales, or wheezes. No accessory muscle use. No intercostal muscle r etraction noted. CARDIAC: Tachy rate, irregular rhythm, S1, S2. [place] mechanical valve click noted . No murmurs or rubs noted. ABDOMEN: Soft, nontender, bowel sounds x4 quadrants, no organomegaly, no palpable masses. SKIN: [place], warm, dry, no cyanosis, no clubbing, no peripheral edema. VASCULAR : There are +2 carotids bilateral, +2 radials bilateral, +1 dorsal pedal and posterior tibial pulses bilateral. Pacemaker insertion site: Left anterior chest just distal to clavicle, incision intact with Steri-St rips. No redness, swelling, drainage, ecchymosis, or hematoma. Dressing change done at this time. LABORATORY STUDIES: Laboratory studies drawn today show WBC of 9.33, hemoglobin 11.2, hematocrit of 34.9, platelet count of 220. Sodium of 142, potassium 3.9, chloride 111, CO2 is 24, BUN 21, creatini ne 0.7, glucose 87, calcium 8.7. Noted yesterday, INR was 1.9. Electrocardiogram today shows atrial fibrillation with right axis deviation. Borderline T-wave abnormalities. Chest x-ray performed thi s morning showing no delayed pneumothorax, minimal blunting of the left costovertebral angle, possibl y atelectasis or trace effusion. No acute cardiopulmonary symptoms. Electrophysiology procedure as mentioned above. DISCHARGE DISPOSITION: Patient will be discharged home in stable condition. She is under activity r estrictions of not lifting more than 10 pounds with the left arm for the next week. Not raising her arm shoulder height for the next week. DISCHARGE MEDICATIONS: Please see discharge medication reconciliation sheet. Patient has been resum ed on home warfarin, per Dr. Ott. No bridging at this time. Patient has been also restarted on bot h AV cb agents of metoprolol and diltiazem. No change to the rest of her home medications. DISCHARGE INSTRUCTIONS: Post-pacemaker implantation discharge instructions went over with the patien t including monitoring for signs of infection, bleeding precautions, and activity restrictions. The patient has a device and wound check set up for next week. I will also have her get an INR drawn on Friday to evaluate her therapy with warfarin. Once she has returned back to our office, we will tor her INR's until she returns back to her therapeutic range 2.[address] Ott's nurse will call her in the next few days, to arrange for her electrophysiology study and AV cb ablation to be don e in the next 2 to 3 weeks. At the time of discharge, both patient and verbalized understand ing of all instructions and have no questions or concerns. Patient has been told that if any problem s or concerns post-discharge, she is to notify our office or return to the hospital. Total time spent on discharge: Greater than 30 minutes. /[id number]/MODL
== END 2017-10-10 11:22 | disposition home or self-care (01) ==
LOC: FCATH 07:11 → F2W 10:11
PROVIDERS: ADMIT Internal Medicine Cardiovascular Disease; ATTEND Internal Medicine Cardiovascular Disease
PROC: 02HK3JZ Insertion of Pacemaker Lead into Right Ventricle, Percutaneous Approach (ICD-10-PCS; principal; 2017-10-09)
PROC: B2161ZZ Fluoroscopy of Right and Left Heart using Low Osmolar Contrast (ICD-10-PCS; principal; 2017-10-09)
PROC: 0JH606Z Insertion of Pacemaker, Dual Chamber into Chest Subcutaneous Tissue and Fascia, Open Approach (ICD-10-PCS; principal; 2017-10-09)
PROC: 02H63JZ Insertion of Pacemaker Lead into Right Atrium, Percutaneous Approach (ICD-10-PCS; principal; 2017-10-09)
DX: I47.1 Supraventricular tachycardia (principal); I48.2 Chronic atrial fibrillation; I48.92 Unspecified atrial flutter; E78.5 Hyperlipidemia, unspecified; I10 Essential (primary) hypertension; Z95.2 Presence of prosthetic heart valve
CPT/HCPCS: 33208; 71046; 93005; C1769; C1785; C1898; J0690; J2250; J2270; J2405; J3010

== ENCOUNTER 2017-11-06 12:21 | Observation (INO) | payer OTHER ==
[2017-11-06] MEDS ORDERED: NS 1,000 ML IV ONE (13:05)
--- NOTE | 2017-11-06 13:31 | CPEKG ---
Heart Rate: 115 RR Interval: 522 P-R Interval: 276 QRSD Interval: 94 QT Interval: 352 QTC Interval: 487 P [place]: 0 QRS [place]: 80 T Wave [place]: -74 EKG Severity - ABNORMAL ECG - EKG Impression: SINUS TACHYCARDIA EKG Impression: FIRST DEGREE AV BLOCK EKG Impression: BORDERLINE PROLONGED QT INTERVAL Electronically Signed By: Kalen Ortiz 13-Nov-2017 21:47:25
[2017-11-06 13:49] LABS: PLATELET COUNT 278 10^3/uL (150-400)
--- NOTE | 2017-11-06 13:49 | PDGENHP ---
History & Physical Chief Complaint: Fatigue History of Present Illness: Af with RVR Pertinent Past, Social, Family History: reviewed and unchanged Relevant Physical Exam: Eval and unchanged Cardiorespiratory Assessment: s1s2 irregular no s3. lungs clear
[2017-11-06] MEDS ORDERED: LIDOCAINE 1% 300 MG/30 ML SDV ONE (14:05)
[2017-11-06] MEDS ORDERED: BUPIVACAINE 0.75% 10 ML SDV ONE (14:05)
[2017-11-06] MEDS ORDERED: MIDAZOLAM 2 MG/2 ML VIAL ONE (14:06)
[2017-11-06 14:08] LABS: INR 2.74 (0.83-1.16); PROTIME(PATIENT) 28.9 SEC (12.0-15.0)
[2017-11-06] MEDS ORDERED: MIDAZOLAM 2 MG/2 ML VIAL IVP ONE (14:10)
--- NOTE | 2017-11-06 14:10 | PDANEPAE ---
ANE History of Present Illness 67 year old female for AV node ablation for treatment of A-fib. History of mitral valve disease and replacement. History of CVA. ANE Past Medical History - Cardiovascular History Hx Arrhythmias: Yes Hx Chest Pain: No Hx Coronary Artery / Peripheral Vascular Disease: No Hx CHF / Valvular Disease: Yes Hx Palpitations: No - Pulmonary History Hx COPD: No Hx Asthma/Reactive Airway Disease: No Hx Recent Upper Respiratory Infection: No Hx Oxygen in Use at Home: No Hx Sleep Apnea: Yes - Neurologic History Hx Cerebrovascular Accident: Yes Hx Seizures: No Hx Dementia: No - Endocrine History Hx Diabetes: No - Renal History Hx Renal Disorders: No - Liver History Hx Hepatic Disorders: No - Neurological & Psychiatric Hx Hx Neurological and Psychiatric Disorders: No - Chronic Pain History Chronic Pain: No ANE Review of Systems Review of Systems: ANE Patient History - Allergies Allergies/Adverse Reactions: No Known Allergies Allergy (Verified 02/12/17 14:53) - Home Medications Home Medications: Aspirin [Aspirin 81mg (*)] 81 mg PO HS 10/29/16 [Last Taken 11/05/17 21:00] Gemfibrozil [Lopid 600 MG (*)] 600 mg PO BIDAC 10/29/16 [Last Taken 11/06/17 06: 30] Multivitamins [Multivitamin (*)] 1 tab PO DAILY 10/29/16 [Last Taken 11/05/17 08 :00] Naproxen 500 mg PO DAILY PRN 10/29/16 [Last Taken 05/07/17 10:00] Omeprazole [Prilosec 20 mg] 20 mg PO DAILY 10/29/16 [Last Taken 11/06/17 06:30] Penicillin V Potassium [Pen Vk 500mg (*)] 500 mg PO AD PRN 10/29/16 [Last Taken 05/07/17 09:00] Risedronate Sodium [Actonel] 150 mg PO Q30D 10/29/16 [Last Taken 11/02/17 08:00] Warfarin Sodium [Coumadin 5MG (*)] 5 mg PO DAILY@16 10/29/16 [Last Taken 21:00] Furosemide [Lasix 40 MG (*)] 60 mg PO DAILY 02/12/17 [Last Taken 11/05/17 08:00] Potassium Cl [Klor-Con 20 meq (*)] 20 meq PO DAILY 02/12/17 [Last Taken 06:30] [place]-3 Fatty Acids [Fish Oil 1000 mg (*)] 1,000 mg PO BID 05/17/17 [Last Taken 11/06/17 06:30] Herbals/Supplements -Info Only 1 ea PO DAILY 06/26/17 [Last Taken 11/05/17 08:00 ] Diltiazem [Cardizem] 120 mg PO BID 10/02/17 [Last Taken 11/06/17 06:30] Estrogens,Conjugated [Premarin 0.3 MG (*)] 0.9 mg PO HS 10/02/17 [Last Taken 08/20 21:00] Metoprolol Tartrate [Lopressor 50 mg (*)] 50 mg PO BID 10/02/17 [Last Taken 09/19 06:30] - Smoking Hx Smoking Status: Never smoked ANE Labs/Vital Signs - Labs Result Diagrams: 11/06/17 13:30 11/06/17 13:30 - Vital Signs Height: 162 cm Weight: 79.2 kg ANE Physical Exam - Airway Neck exam: FROM Mallampati Score: Class 2 Mouth exam: normal dental/mouth exam - Pulmonary Pulmonary: no respiratory distress - Cardiovascular Cardiovascular: regular rate and rhythym - ASA Status ASA Status: III ANE Anesthesia Plan Anesthesia Plan: MAC
[2017-11-06] MEDS ORDERED: PROPOFOL/EMULSION 500 MG/50 ML BOTTLE IV ONE (14:17)
[2017-11-06] MEDS ORDERED: fentaNYL 100 MCG/2 ML INJ ONE (14:17)
[2017-11-06] MEDS ORDERED: PENICILLIN VK 500 MG TAB PO PRN (15:43)
[2017-11-06] MEDS ORDERED: ACETAMINOPHEN 325 MG TAB PO PRN (15:43)
[2017-11-06] MEDS ORDERED: Risedronate Sodium [Actonel] 150 MG PO SCH (15:45)
--- NOTE | 2017-11-06 15:51 | CPEKG ---
Heart Rate: 99 RR Interval: 606 P-R Interval: 126 QRSD Interval: 128 QT Interval: 416 QTC Interval: 534 P [place]: 0 QRS [place]: -66 T Wave [place]: 105 EKG Severity - ABNORMAL ECG - EKG Impression: VENTRICULAR-PACED RHYTHM Electronically Signed By: Kalen Ortiz 13-Nov-2017 21:47:03
[2017-11-06] MEDS ORDERED: WARFARIN SODIUM 5 MG TAB PO SCH (16:00)
[2017-11-06] MEDS ORDERED: NALOXONE HCL 0.4 MG/ML INJ IVP PRN (16:02)
[2017-11-06] MEDS ORDERED: fentaNYL 100 MCG/2 ML INJ IVP PRN (16:02)
[2017-11-06] MEDS ORDERED: LR 500 ML IV PRN (16:02)
[2017-11-06] MEDS ORDERED: ALBUTEROL 3 ML DEYVIAL IH PRN (16:02)
[2017-11-06] MEDS ORDERED: PHENYLEPHRINE HCL 100 MCG/ML SYR IVP PRN (16:02)
[2017-11-06] MEDS ORDERED: ONDANSETRON 4 MG/2 ML VIAL IVP PRN (16:02)
[2017-11-06] MEDS ORDERED: NAPROXEN SODIUM 220 MG TAB PO PRN (17:30)
[2017-11-06] MEDS: GEMFIBROZIL 600 MG TAB PO SCH (18:04)
[2017-11-06] MEDS ORDERED: ASPIRIN 81 MG CHEWABLE TAB PO SCH (21:00)
[2017-11-06] MEDS ORDERED: ESTROGENS,CONJUGATED 0.3 MG TAB PO SCH (21:00)
[2017-11-06] MEDS: OMEGA-3 FATTY ACIDS 1,000 MG CAP PO SCH (22:54)
[2017-11-07 07:20] VITALS: BP 120/78
[2017-11-07] MEDS: GEMFIBROZIL 600 MG TAB PO SCH (07:56)
[2017-11-07] MEDS: OMEGA-3 FATTY ACIDS 1,000 MG CAP PO SCH (07:56)
--- NOTE | 2017-11-07 08:35 | CPEKG ---
Heart Rate: 99 RR Interval: 606 QRSD Interval: 128 QT Interval: 396 QTC Interval: 509 QRS [place]: -72 T Wave [place]: 110 EKG Severity - ABNORMAL ECG - EKG Impression: AFIB/FLUTTER AND VENTRICULAR-PACED RHYTHM Electronically Signed By: Kalen Ortiz 13-Nov-2017 21:46:45
[2017-11-07] MEDS ORDERED: PANTOPRAZOLE SODIUM 40 MG TAB PO SCH (09:00)
[2017-11-07] MEDS ORDERED: POTASSIUM CL 20 MEQ TAB PO SCH (09:00)
[2017-11-07] MEDS ORDERED: MULTIVITAMINS 1 EACH TAB PO SCH (09:00)
[2017-11-07] MEDS ORDERED: FUROSEMIDE 40 MG TAB PO SCH (09:00)
[2017-11-07] MEDS ORDERED: Herbals/Supplements -Info Only PO SCH (09:00)
--- NOTE | 2017-11-07 09:00 | EPPROC ---
Electrophysiology Procedure Note: Procedures performed: 02509 AV node ablation Fluoroscopy INDICATION: Atrial fibrillation, unable to rate control despite maximally tolerated medical therapy Catheters & Anesthesia: The patient arrived in the Electrophysiology Laboratory in the fasting state. Moderate sedation was administered by __. The right groin and left groin area were prepped and draped in the usual sterile manner. Appropriate non-invasive blood pressure, pulse oximetry and end-tidal CO2 monitoring was established. All catheters were placed percutaneously using the modified Seldinger technique and advanced into position under fluoroscopic guidance). At baseline the patient was noted to be in AF with a mean ventricular rate of 130 bpm. A #7 [place] deflectable quadrapolar electrode catheter (2mm-5mm-2mm spacing) with 8 mm tip electrode was advanced to the right atrium. A total of 3 RF applications were delivered. RF#1 was applied in the area of the compact AV node. RF#2 was applied to the same area as RF#1. RF#3 was applied to the area of the fast AV cb pathway. RF#4 was applied to the right midseptal tricuspid annulus. There was complete AV block after RF#1. Cessation of pacing revealed that there was no escape rhythm at CERTIFIED PEDORTHOTIST of 40bpm. Pacemaker implantation was done previously. The pacemaker was programmed to a lower rate of 100 ppm to reduce the risk of sudden associated with torsades de pointes. The lower rate will gradually be reduced to 70 ppm after 1 month . Fluoroscopically pacemaker lead positions were unchanged after procedure Pacemaker thresholds and impedances were unchanged after the procedure The catheters were removed. The patient was transferred to the cardiovascular holding area in stable condition. Vascular access sheaths were removed in the holding area. There were no apparent complications. CONCLUSIONS: Atrial fibrillation with rapid ventricular response. Successful ablation of the AV junction producing complete AV block. No complications. Patient Problems: Problems Problem Status Onset Atrial flutter Acute Valvular heart disease Acute
--- NOTE | 2017-11-07 09:34 | GDS ---
[f rep st] DISCHARGE SUMMARY DISCHARGE DIAGNOSES: 1. Permanent atrial fibrillation, status post arteriovenous cb ablation. 2. Prior pacemaker placement. 3. History of mitral valve disease. HOSPITAL COURSE: For a detailed H and P, please see prior dictation. Briefly, the patient is a 67-y ear-old female with a longstanding history of mitral valve disease. She had her first surgery at the age of 23 and then a bioprosthetic valve 8-9 years later. Her most recent valve replacement was mec hanical and placed in 1991. In 2011, she developed paroxysmal atrial fibrillation and was started on sotalol. Since then, she has had intermittent events was also identified to have atrial flutter and atrial tachycardia. She was switched from sotalol to Tikosyn but continued to be poorly controlled. She actually failed 2 cardioversions recently. She had a consultation with Dr. Valdo Ott and jorge a rothman decided to proceed with pacemaker placement and AV cb ablation. Her AV node was ablated on 11/06/2017. The procedure was uncomplicated. The following day, she denied any chest discomfort. She was monitored on telemetry and remained in atrial fibrillation with ventricular pacing at a rat e of 100 beats per minute. Her EKG showed similar results. Her right groin where access was obtaine d for the EP study and ablation is clean and intact, without any evidence of infection or hematoma. She is currently on Coumadin for her mechanical mitral valve, and her INR is therapeutic at 2.74. PHYSICAL EXAMINATION: GENERAL: Patient appears in no acute distress. VITALS: Blood pressure 120/78 , heart rate 98, oxygen saturation of 94% on room air. Afebrile. LUNGS: Clear to auscultation. No wheezes, rhonchi, or crackles auscultated. CARDIAC: Borderline tachycardic at a rate of 100 beats per minute. EXTREMITIES: Right groin where access was obtained for the EP study and ablation is nicolas n and intact, without any evidence of infection or hematoma. DISCHARGE MEDICATIONS: Metoprolol and amiodarone have been discontinued. She will continue multivit ricardo daily, aspirin 81 mg daily, Prilosec 20 mg daily, Actonel 150 mg every 30 days, penicillin 500 m g p.r.n. prior to dental procedures, naproxen 500 mg daily, warfarin 5 mg daily, Lopid 600 mg b.i.d., potassium 20 mEq daily, Lasix 40 mg daily, fish oil 1000 mg b.i.d., Tylenol p.r.n., herbal supplemen t daily, estrogen at bedtime. PLAN: The patient is currently stable and ready for discharge home. She has been given groin precau tions. She will follow up once a week for pacer interrogation, reducing the rate at each followup vi sit. Her first visit is scheduled for 11/11 at 9 a.m. She will schedule a followup visit with Dr. Farhad dawson in 4-6 weeks. /[id number]/MODL
--- NOTE | 2017-11-07 09:38 | ASDISCHSUM ---
Discharge Information Plan Status:Home with No Needs Medically Cleared to Leave:11/07/2017 Discharge Date:11/07/2017 CM D/C Disposition:Home, Routine, Self-Care ADT D/C Disposition:Home, Routine, Self-Care Projected Discharge Date:11/07/2017 Transportation at D/C: Discharge Delay Reason: Follow-Up Date:11/07/2017 Discharge Slot: Final Diagnosis: Placement Information Patient Contact Information Contact Name:MONIQUE Relationship: Address:[address] City:[place] Alternate Phone: [facility]/Zip Code:[place] [address] Email: Financial Information Financial Class:Medicare Primary Plan Desc:MEDICARE OUTPATIENT Primary Plan Number:[id number] Secondary Plan Desc:BRYAN MARTINEZ Secondary Plan Number:[id number] Assessment Information LACE LACE Length of stay for Answers: Less than 1 day current admission Acuity / Level of Answers: No Care: Did the patient have an inpatient admission? Comorbidities - select Answers: Cerebrovascular disease all that apply (CVA, TIA, aneurysms, vasc ular dementia) Congestive heart failure # of Emergency department Answers: 0 visits in the last 6 months Score: 3 Date Signed: 11/07/2017 09:37 AM Electronically Signed By:Tootie Scruggs RN Intervention Information
[2017-11-08] MEDS ORDERED: FUROSEMIDE 40 MG TAB PO SCH (09:00)
== END 2017-11-07 10:36 | disposition home or self-care (01) ==
LOC: FCATH 12:21 → UNDOADMOB 12:51 → F3N 12:51 → EDSTATUS 15:00 → F2W 15:42
PROVIDERS: ADMIT Internal Medicine Cardiovascular Disease; ATTEND Internal Medicine Cardiovascular Disease
PROC: 02583ZZ Destruction of Conduction Mechanism, Percutaneous Approach (ICD-10-PCS; principal; 2017-11-06)
PROC: B2141ZZ Fluoroscopy of Right Heart using Low Osmolar Contrast (ICD-10-PCS; principal; 2017-11-06)
DX: I48.2 Chronic atrial fibrillation (principal); I34.0 Nonrheumatic mitral (valve) insufficiency; I10 Essential (primary) hypertension; E66.9 Obesity, unspecified; Z68.39 Body mass index [BMI] 39.0-39.9, adult; Z95.0 Presence of cardiac pacemaker; Z95.2 Presence of prosthetic heart valve; Z79.01 Long term (current) use of anticoagulants; Z86.73 Personal history of transient ischemic attack (TIA), and cerebral infarction without residual deficits
CPT/HCPCS: 93005; 93650; C1732; J1644; J2250; J2704; J3010

== ENCOUNTER → 2018-09-10 | Outpatient (CLI) | payer OTHER | LOC: BHLMT 09:00 | PROVIDERS: ATTEND Internal Medicine Cardiovascular Disease | DX: I48.91 Unspecified atrial fibrillation (principal) | CPT/HCPCS: 78452; 93017; A9500; J2785 ==

== ENCOUNTER → 2018-09-18 | Outpatient (CLI) | payer OTHER | LOC: BHLMT 10:45 | PROVIDERS: ATTEND Internal Medicine Interventional Cardiology | DX: I48.91 Unspecified atrial fibrillation (principal); I05.9 Rheumatic mitral valve disease, unspecified | CPT/HCPCS: 93306-PO ==